=== PATIENT | female | born 1970 | race Caucasian/White ===

== ENCOUNTER 2020-04-13 18:36 | Emergency (ER) | payer BC ==
--- OUTSIDE RECORDS SUMMARY | 2020-04-13 18:38 | XMS REPORT | Clinical Summary ---
:1970 Author Organization [facility] Address [address] [place] [address] Care Team Providers Name Role Phone Dawood Cole MD Primary Care Provider Allergies Active Allergy Reactions Severity Noted Date Comments Ephedrine 10/18/2016 Medications Medication Sig Dispensed Refills Start Date End Date Status UNABLE TO FIND Med Name: Estrogen Patch. 0 Active Active Problems Not on file Encounters Date Type Specialty Care Team Description 03/02/2020 Documentation Ophthalmology Koby Zambrano MD 02/26/2020 Telephone Ophthalmology Koby Zambrano MD 02/18/2020 Telephone Ophthalmology Suzie Miranda 02/09/2020 Telephone Ophthalmology Marcia Egan 02/04/2020 Telephone Ophthalmology Humera Shrestha 02/03/2020 Telephone General Surgery Renata Lomeli LVN 02/03/2020 Orders Only General Surgery Renata Lomeli, SOLE SKIVER Weight l oss (Primary Dx); Multiple vitami n deficiency; S/P gastric byp ass; Intestinal dago bsorption, unspecified type 02/02/2020 Telephone Ophthalmology Koby Zambrano MD 01/28/2020 Telephone Ophthalmology Koby Zambrano MD 01/25/2020 Orders Only Ophthalmology Koby Zambrano MD 01/21/2020 Office Visit Ophthalmology Koby Zambrano MD Optic ne uritis (Primary Dx); Unspecified vis ual field defects 01/21/2020 Travel 11/18/2019 Telephone Ophthalmology Koby Zambrano MD after 04/13/2019 Surgical History Surgery Date Site/Laterality Comments BEAR-EN-Y PROCEDURE Medical History Medical History Date Comments Obesity GI (gastrointestinal bleed) Family History Medical History Relation Name Comments Hyperlipidemia Father Hypertension Father Cancer Maternal Grandmother Cancer Mother Hyperlipidemia Mother Hypertension Mother Cancer Paternal Grandfather Relation Name Status Comments Father Alive Maternal Grandmother Alive Mother Alive Paternal Grandfather Social History Tobacco Use Types Packs/Day Years Used Date Former Smoker Smokeless Tobacco: Never Used Alcohol Use Drinks/Week oz/Week Comments Never Alcohol Habits Answer Date Recorded How often do you have a drink containing alcohol? Never 01/21/2020 How many drinks containing alcohol do you have on a typical Not asked day when you are drinking? How often do you have six or more drinks on one occasion? No t asked Sex Assigned at Date Recorded Not on file Last Filed Vital Signs Vital Sign Reading Time Taken Comments Blood Pressure - - Pulse - - Temperature - - Respiratory Rate - - Oxygen Saturation - - Inhaled Oxygen Concentration - - Weight 90.7 kg (200 lb) 01/21/2020 12:50 PM CDT Height 165.1 cm (5' 5") 01/21/2020 12:50 PM CDT Body Mass Index 33.28 01/21/2020 12:50 PM CDT Plan of Treatment Date Type Specialty Care Team Description 05/04/2020 Office Visit Ophthalmology Koby Zambrano MD [address] [facility] [address] [place], [place] [address] [phone] Health Maintenance Due Date Last Done Comments CERVICAL CANCER SCREENING 1992 INFLUENZA VACCINE 01/16/2020 Procedures Procedure Name Priority Date/Time Associated Comments Diagnosis RPR TITER WITH REFLEX Routine 01/25/2020 4:27 Re sults for this TO CONFIRMATION PM CDT procedure ar e in the results section. NIACIN (VITAMIN B3) Routine 01/25/2020 4:27 Resu lts for this PM CDT procedure are i n the results section. VITAMIN B1 LEVEL, Routine 01/25/2020 4:27 Result s for this WHOLE BLOOD PM CDT procedure are i n the results section. VITAMIN K LEVEL, SERUM Routine 01/25/2020 4:27 R esults for this PM CDT procedure are i n the results section. VITAMIN B2 LEVEL, Routine 01/25/2020 4:27 Result s for this PLASMA PM CDT procedure are i n the results section. VITAMIN C LEVEL, Routine 01/25/2020 4:27 Results for this PLASMA PM CDT procedure are i n the results section. VITAMIN D 25 HYDROXY Routine 01/25/2020 4:27 Res ults for this LEVEL PM CDT procedure are i n the results section. VITAMIN B12 AND FOLATE Routine 01/25/2020 4:27 R esults for this PM CDT procedure are i n the results section. T3, FREE Routine 01/25/2020 4:27 Results for this PM CDT procedure are i n the results section. THYROID STIMULATING Routine 01/25/2020 4:27 Resu lts for this HORMONE PM CDT procedure are i n the results section. T4, FREE Routine 01/25/2020 4:27 Results for this PM CDT procedure are i n the results section. VITAMIN E LEVEL, Routine 01/25/2020 4:27 Results for this PLASMA OR SERUM PM CDT procedure ar e in the results section. HOMOCYSTINE, PLASMA Routine 01/25/2020 4:27 Resu lts for this PM CDT procedure are i n the results section. METHYLMALONIC ACID, Routine 01/25/2020 4:27 Resu lts for this SERUM PM CDT procedure are i n the results section. FERRITIN LEVEL Routine 01/25/2020 4:27 Results f or this PM CDT procedure are i n the results section. TOTAL IRON BINDING Routine 01/25/2020 4:27 Resul ts for this CAPACITY PM CDT procedure are i n the results section. after 04/13/2019 Results Niacin (vitamin B3) (01/25/2020 4:27 PM CDT) [facility] Signature Nicotinic acid <20 ng/mL [employer] Comment: [place] OTERO Due to the large variability in the metabolism of nicotinic acid, the dosing preparation used (immediate-release vs. extended release), and the mg doses used, the serum concentrations may range from less than 20 ng/mL to about 30,000 ng/mL. After oral administration of an immediate-release tablet, peak plasma concentrations occur in 4 to 5 hours. The plasma half-life of nicotinic acid is about one hour. In one study, fasting plasma concentrations were reported to be less than 20 ng/mL. In another study, it was reported that the administration of a single 1000 mg extended-release tablet resulted in mean nicotinic acid concentrations of less than 50 ng/mL. This test was developed and its analytical performance characteristics have been determined by [facility]. It has not been cleared or approved by [facility] FDA. This assay has been validated pursuant to the CLI A regulations and is used for clinical purposes. Nicotinamide <20 ng/mL [employer] Comment: BEVERLY OTERO Nicotinamide is a metabolite of nicotinic acid. Due to the large variability in the metabolism of nicotinic acid, plasma concentrations of this metabolite are variable. In one study, fasting plasma concentrations were reported to be approximately 40 ng/mL. In another study it was reported that the administration of a single 1000 mg of extended- release tablet of nicotinic acid resulted in a mean peak nicotinamide concentration of 400 ng/mL between 5 and 10 hours post dose, decreasing to about 100 ng/mL by 16 hours post dose. This test was developed and its analytical performance characteristics have been determined by [facility]. It has not been cleared or approved by [facility] FDA. This assay has been validated pursuant to the CLI A regulations and is used for clinical purposes. Specimen Narrative Performed At FASTING:NO [facility] FASTING: NO Resulting Agency Comment Performing Organization Information: Site ID: SLI Name: [facility] Irene gaye Address: [address] [place] [phone] Director: Jasper Ontiveros M.D., Ph. D Performing Organization Address [place] [facility] Phon e Number [employer] [address] [address] [employer] Vitamin B12 and Folate (01/25/2020 4:27 PM CDT) [facility] Vitamin B12 228 200 - 1,100 [employer] Comment: pg/mL [place] Please Note: Although the reference range for vitamin B12 is 200-1100 pg/mL, it has been reported that betwe en 5 and 10% of patients with values between 200 and 400 pg/mL may experience neuropsychiatric and hematologic abnormalities due to occult B12 deficiency; less than 1% of patients with values above 400 pg/mL will have symp toms. Folate 11.2 ng/mL [employer] Comment: [place] Reference Rang e Low: <3.4 Borderline: 3.4-5.4 Normal: >5.4 Specimen Narrative Performed At FASTING:NO [facility] FASTING: NO Resulting Agency Comment Performing Organization Information: Site ID: RGA Name: [facility] Melanie martínez Address: [address] [place] [phone] Director: Jagjit Mahoney Performing Organization Address [place] [facility] Phon e Number [employer] [address] [address] RPR titer with reflex to confirmation (01/25/2020 4:27 PM CDT) RPR (dx) w/refl titer NON-REACTIVE NON-REACTIVE [facility] and confirmatory [place] testing Specimen Narrative Performed At FASTING:NO [facility] FASTING: NO Resulting Agency Comment Performing Organization Information: Site ID: RGA Name: [facility] Address: [address] [place] [phone] Director: Jagjit Mahoney Performing Organization Address City/State/ZIP [facility] Phon e Number [facility] [place] [address] Total iron binding capacity (01/25/2020 4:27 PM CDT) Pathologist Sig nature Iron level 36 (L) 40 - 190 mcg/dL [facility] Iron binding capacity 425 250 - 450 [facility] mcg/dL (calc) [place] Iron saturation 8 (L) 16 - 45 % [facility] (calc) [place] Specimen Narrative Performed At FASTING:NO [facility] FASTING: NO Resulting Agency Comment Performing Organization Information: Site ID: RGA Name: [facility] Address: [address] [place] [phone] Director: Jagjit Mahoney Performing Organization Address [place] [facility] Phon e Number [facility] [place] [address] Homocystine, plasma (01/25/2020 4:27 PM CDT) Homocysteine 11.9 (H) <10.4 umol/L [facility] Comment: DIAGNOSTICS/[facility] Homocysteine is increased by functional deficiency of folate or vitamin B12. Testing for methylmalonic acid differentiates between these deficiencies. Other cause s of increased homocysteine include renal failure, folate antagonists such as methotrexate and phenytoin, and ex posure to nitrous oxide. Lorri Vasquez, et al. [employer] Med. 1999;131(5):331-9. Specimen Narrative Performed At FASTING:NO [facility] FASTING: NO Resulting Agency Comment Performing Organization Information: Site ID: EZ Name: [facility], Address: [address] [place] [address] Director: Yudith Ocampo MD,PhD,MB A Performing Organization Address [place] [facility] Phon e Number [facility] [address] [place], [place] [phone] [facility] [address] Methylmalonic acid, serum (01/25/2020 4:27 PM CDT) Pathologist [facility] Methylmalonic acid 318 87 - 318 [facility] Comment: nmol/L DIAGNOSTICS/[facility] This test was developed and its analytical performance characteristics have been determined by [facility]. It has not been cleared or approved by FDA. This assay has been valida david pursuant to the CLIA regulations and is used for clini patricio purposes. Specimen Narrative Performed At FASTING:NO [facility] FASTING: NO Resulting Agency Comment Performing Organization Information: Site ID: EZ Name: [facility], Address: [address] [place] [phone] Director: Yudith Ocampo MD,PhD,MB A Performing Organization Address [place] [facility] Phon e Number [facility] [address] [place], [place] [phone] [facility] [address] Vitamin B1 level, whole blood (01/25/2020 4:27 PM CDT) [facility] Vitamin B1, 145 78 - 185 [facility] whole blood Comment: nmol/L [facility] Vitamin supplementation within 24 hours prior to blood draw may affect the accuracy of results. This test was developed and its analytical performance characteristics have been determined by [facility]. It has not been cleared or approved by [facility] FDA. This assay has been validated pursuant to the CLI A regulations and is used for clinical purposes. Specimen Narrative Performed At FASTING:NO [facility] FASTING: NO Resulting Agency Comment Performing Organization Information: Site ID: SLI Name: [facility] Irene huizar Address: [address] [place] [address] Director: Jasper Ontiveros M.D., Ph. D Performing Organization Address [place] [facility] Phon e Number [facility] [place] [address] [place] [address] [employer] Vitamin K level, serum (01/25/2020 4:27 PM CDT) Vitamin K 1,340 130 - 1,500 [facility] Comment: pg/mL [place] OTERO Due to potential interferences, Vitamin K1 levels cannot be determined in individuals taking Vitamin K2 supplements. This test was developed and its analytical performance characteristics have been determined by [facility]. It has not been cleared or approved by [facility]. This assay has been validated pursuant to the CLI A regulations and is used for clinical purposes. Specimen Narrative Performed At FASTING:NO [facility] FASTING: NO Resulting Agency Comment Performing Organization Information: Site ID: [facility] Name: [facility] Address: [address] [place], [place] [address] Director: Jasper Ontiveros M.D., Ph. D Performing Organization Address [facility] e Number [employer] [place] [id number] [place], [place] [phone] [employer] Vitamin B2 level, plasma (01/25/2020 4:27 PM CDT) Vitamin B2 11.4 6.2 - 39.0 [facility] Comment: nmol/L [place] OTERO Vitamin supplementation within 24 hours prior to blood draw may affect the accuracy of results. This test was developed and its analytical performance characteristics have been determined by [facility]. It has not been cleared or approved by [facility]. This assay has been validated pursuant to the CLI A regulations and is used for clinical purposes. Specimen Narrative Performed At FASTING:NO [facility] FASTING: NO Resulting Agency Comment Performing Organization Information: Site ID: [facility] Name: [employer] [facility] Address: [address] [place] [address] Director: Jasper Ontiveros M.D., Ph. D Performing Organization Address [place] [facility] Phon e Number IND [employer] [phone] [place], [place] [phone] [employer] Vitamin C level, plasma (01/25/2020 4:27 PM CDT) Vitamin C, 0.3 0.3 - 2.7 [facility] plasma Comment: mg/dL [place] OTERO This test was developed and its analytical performance characteristics have been determined by [facility]. It has not been cleared or approved by [facility] FDA. This assay has been validated pursuant to the CLI A regulations and is used for clinical purposes. Specimen Narrative Performed At FASTING:NO [facility] FASTING: NO Resulting Agency Comment Performing Organization Information: Site ID: SLI Name: NPTVChasity huizar Address: [address] [place] [phone] Director: Jasper Ontiveros M.D., Ph. D Performing Organization Address City/[facility] Phon e Number [employer] [address] [phone] ATTICA Vitamin D 25 hydroxy level (01/25/2020 4:27 PM CDT) Pathologist [facility] Vitamin D, 16 (L) 30 - 100 [employer] 25-hydroxy Comment: ng/mL [place] Vitamin D Status 25-OH Vitamin D: Deficiency: <20 ng/mL Insufficiency: 20 - 29 ng/mL Optimal: > or = 30 ng/mL For 25-OH Vitamin D testing on patients on D2-supplementation and patients for whom quantitation of D2 and D3 fractions is required, the [facility](T M) 25-OH VIT D, (D2,D3), LC/MS/MS is recommended: order code 29757 (patients >2yrs). See Note 1 Note 1 For additional information, please refer to http://education.[employer]/faq/BQB364 (This link is being provided for informational/ educational purposes only.) Specimen Narrative Performed At FASTING:NO [facility] FASTING: NO Resulting Agency Comment Performing Organization Information: Site ID: RGA Name: [facility] Melanie martínez Address: [address] [place] [address] Director: Jagjit Mahoney Performing Organization Address City/[facility]/ZIP [facility] Phon e Number [employer] [address] [address] T3, free (01/25/2020 4:27 PM CDT) Pathologist [facility] [place]aclyn T3, free 2.4 2.3 - 4.2 pg/mL [employer] [place] Specimen Narrative Performed At FASTING:NO [facility] FASTING: NO Resulting Agency Comment Performing Organization Information: Site ID: RGA Name: [facility] Address: [address] [place] [address] Director: Jagjit Mahoney Performing Organization Address [place] [facility] Phon e Number [employer] [place] [address] [place] [address] Vitamin E level, plasma or serum (01/25/2020 4:27 PM CDT) Alpha-tocopherol 12.9 mg/L [facility] mg/L Comment: BEVER[place] OTERO Reference Range 5.7-19.9 mg/L Levels of alpha-tocopherol <5 mg/L are consistent with Vitamin E deficiency in adults. Vitamin supplementation within 24 hours prior to blood draw may affect the accuracy of results. This test was developed and its analytical performance characteristics have been determined by [facility]. It has not been cleared or approved by [facility] FDA. This assay has been validated pursuant to the CLI A regulations and is used for clinical purposes. Gamma-tocopherol 1.4 <4.4 mg/L [facility] mg/L Comment: [place] OTERO This test was developed and its analytical performance characteristics have been determined by [facility]. It has not been cleared or approved by [facility] FDA. This assay has been validated pursuant to the CLI A regulations and is used for clinical purposes. Specimen Narrative Performed At FASTING:NO [facility] FASTING: NO Resulting Agency Comment Performing Organization Information: Site ID: SLI Name: NPTVBeverly huizar Address: [address] [place] [address] Director: Jasper Ontiveros M.D., Ph. D Performing Organization Address [place] [facility] Phon e Number [employer] [place] [address] [address] SHANNA Thyroid stimulating hormone (01/25/2020 4:27 PM CDT) Pathologist Sig nature TSH 1.95 mIU/L [facility] Comment: [place] Reference Range > or = 20 Years 0.40-4.50 Ranges First trimester 0.26-2.66 Second trimester 0.55-2.73 Third trimester 0.43-2.91 Specimen Narrative Performed At FASTING:NO [facility] FASTING: NO Resulting Agency Comment Performing Organization Information: Site ID: RGA Name: [facility] Address: [address] [place] [phone] Director: Jagjit Mahoney Performing Organization Address [place] [facility] Phon e Number [facility] [place] [address] T4, free (01/25/2020 4:27 PM CDT) Pathologist Sig nature T4, free 0.9 0.8 - 1.8 ng/dL [facility] [place] Specimen Narrative Performed At FASTING:NO [facility] FASTING: NO Resulting Agency Comment Performing Organization Information: Site ID: RGA Name: [facility] Address: [address] [place] [phone] Director: Jagjit Mahoney Performing Organization Address [facility] Phon e Number [facility] [place] [address] Ferritin level (01/25/2020 4:27 PM CDT) Pathologist Sig nature Ferritin level 4 (L) 16 - 232 ng/mL [facility] Specimen Narrative Performed At FASTING:NO [facility] FASTING: NO Resulting Agency Comment Performing Organization Information: Site ID: RGA Name: [facility] [facility] Address: [address] [place] [phone] Director: Jagjit Mahoney Performing Organization Address [place] [facility] Phon e Number [facility] [place] [address] after 04/13/2019 Advance Directives For more information, please contact: [phone] Type Date 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
--- OUTSIDE RECORDS SUMMARY | 2020-04-13 18:38 | XMS REPORT | Continuity of Care Document ---
:1970 Author Organization [facility] t Address [address] [place] [address] Care Team Providers Name Role Phone Brayan Cole MD Primary Care Physician Yaakov Rivera MD Attending Clinician Ruben Attending Clinician Unavailable Julisa Attending Clinician Unavailable Shrestha Attending Clinician Unavailable Yani GLUE MIXER Attending Clinician [facility] Attending Clinician Unavailable Payers Payer Name Policy Type Policy Effective Date Expiration Date [facility] Number BCBSBCBS CHOICE [id number] 2015 [place] PPO/FEDERAL 00:00:00 Hinduism EMPL [id number] 2015-Presen tPPO Problems This patient has no known problems. Allergies, Adverse Reactions, Alerts Allergy Allergy Status Severity Reaction(s) Onset Inactive Treating Comm ents Source Name Type Date Date Clinician Ephedrin Propensi Active [place] ty to 10-18 [facility] adverse 00:00: st reaction 00 s to drug Family History Family Member Diagnosis Comments Start Date Stop Date Source Natural father Hyperlipidemia [place] [facility] Natural father Hypertension [place] [facility] Maternal grandmother Cancer [place] [facility] Natural mother Cancer [facility] thodist Natural mother Hyperlipidemia [place] Natural mother Hypertension [place] [facility] Paternal grandfather Cancer [place] Social History Social Habit Start Date Stop Date Quantity Comments Source History [facility] Meth odist Alcohol Std Drinks History [facility] Meth odist Alcohol Binge Sex Assigned At [facility] ethodist Tobacco use and 2020-01-21 2020-01-21 Never used [facility] ethodist exposure 00:00:00 00:00:00 Alcohol intake 2020-01-21 2020-01-21 Lifetime [facility] thodist 00:00:00 00:00:00 non-drinker (finding) History SDOH 2020-01-21 2020-01-21 1 [place] [facility] Alcohol Frequency 00:00:00 00:00:00 Smoking Status Start Date Stop Date Source Former smoker 2020-01-21 00:00:00 2020-01-21 00:00:00 Zheng Cole Medications Ordered Filled Start Stop Current Ordering Indication Dosage Frequency Signature Comments Components Source Medication Medication Date Date Medication? Clinician (SIG) Name Name UNABLE TO Yes Med Name: Fermin LILLY 01-20 Estrogen Methodi 12:51: Patch. st 11 Vital Signs Vital Name Observation Time Observation Value Comments Source Body height 2020-01-21 12:50:00 165.1 cm Zheng Cole Body weight 2020-01-21 12:50:00 90.719 kg Zheng Cole BMI 2020-01-21 12:50:00 33.28 kg/m2 Zheng Cole Procedures Procedure Date / Time Performed Performing Clinician Sourc e TOTAL IRON BINDING 2020-01-25 16:27:00 Sue Rivera ethodist CAPACITY FERRITIN LEVEL 2020-01-25 16:27:00 Sue Rivera odjesus METHYLMALONIC ACID, SERUM 2020-01-25 16:27:00 Sue Rivera [place] [facility] HOMOCYSTINE, PLASMA 2020-01-25 16:27:00 Sue Rivera VITAMIN E LEVEL, PLASMA 2020-01-25 16:27:00 Sue Rivera [facility] OR SERUM T4, FREE 2020-01-25 16:27:00 Sue Rivera Meth odist THYROID STIMULATING 2020-01-25 16:27:00 Sue Rivera HORMONE T3, FREE 2020-01-25 16:27:00 Sue Rivera Meth odjesus VITAMIN B12 AND FOLATE 2020-01-25 16:27:00 Sue Rivera on Hinduism VITAMIN D 25 HYDROXY 2020-01-25 16:27:00 Sue Rivera LEVEL VITAMIN C LEVEL, PLASMA 2020-01-25 16:27:00 Sue Rivera VITAMIN B2 LEVEL, PLASMA 2020-01-25 16:27:00 Sue Rivera VITAMIN K LEVEL, SERUM 2020-01-25 16:27:00 Sue Rivera on [facility]ism VITAMIN B1 LEVEL, WHOLE 2020-01-25 16:27:00 Sue Rivera BLOOD NIACIN (VITAMIN B3) 2020-01-25 16:27:00 Sue Rivera RPR TITER WITH REFLEX TO 2020-01-25 16:27:00 Sue Rivera CONFIRMATION Plan of Care Planned Activity Planned Date Details Comments Source Future Scheduled 2020-01-16 INFLUENZA VACCINE [place] [facility] Test 00:00:00 [code = INFLUENZA VACCINE] Future Scheduled 1992 Screening for [facility] thodist Test 00:00:00 malignant neoplasm of cervix (procedure) [code = 492570579] Encounters Start End Encounter Admission Attending Care Care Encounter Source Date/Time Date/Time Type Type Clinicians Facility Department ID 2020-01-21 2020-01-21 Outpatient SUE RIVERA [facility] [id number] [place] 00:00:00 00:00:[address] 2019-09-07 2019-09-07 Office Pob1, Acute [facility] [id number] 14:58:21 16:00:22 Visit [facility] [id number] [place] [id number] Professio [id number] nal 044 Office Building One Results Test Description Test Time Test Comments Results Result Comments Source Ferritin level 2020-01-30 16:10:00 Test Item Value Reference Range Interpretation Comme nts Ferritin level (test code = 2276-4) 4 ng/mL 16-232 L RYAN (test code = RYAN) FASTING:NOFASTING: NO RAC (test code = RAC) Performing Organization Information: Site ID: RGA Name: [facility] Address: [address] [place] [address] Director: Jagjit Mahoney Lab Interpretation (test code = Abnormal 79251-9) Zheng Gallego, [id number] 16:10:00 Test Item Value Reference Range Interpretation Comments T4, free (test code 0.9 ng/dL 0.8-1.8 = 3024-7) RYAN (test code = FASTING:NOFASTING: NO RYAN) RAC (test code = Performing Organization RAC) Information: Site ID: MICHAEL Name: [facility] Address: [address] [place] [phone] Director: Jagjit Nick ZhangHoolehua [place] DorcasistThyroid stimulating [id number] 16:10:00 Test Item Value Reference Range Interpretation Comments TSH (test code 1.95 mIU/L = 3016-3) Reference Range > or = 20 Years 0.40-4.50 Range s First trimester 0.26-2.66 Second trimeste r 0.55-2.73 Third trimester 0.43-2.91 RYAN (test code FASTING:NOFASTING: NO = RYAN) RAC (test code Performing = RAC) Organization Information: Site ID: [facility] Name: [facility] Lab Address: [address] [place] [phone] Director: Jagjit Zhangridge [place] HinduismVitamin E level, plasma or [id number] 16:10:00 Test Item Value Reference Range Interpretation Comments Alpha-tocoph 12.9 mg/L Reference Range cash mg/L 5.7-19.9 mg /L (test code = Levels o f 1823-4) alpha-tocophero l <5 mg/L are consistent with Vitamin E defic iency in adults.Vitamin supplementation within 24 hours prior to blood draw may affect the accuracy of results. T his test was develo ped and its analytical performance characteristics have been determined by [facility]. It has not been cl eared or approved by theFDA. This assay has been validated pursu ant to the CLIA regula tions and is used for clinical purpos es. Gamma-tocoph 1.4 <4.4 mg/L This test was cash mg/L developed and i ts (test code = analytical perf ormance 43584-9) characteristics have been determined by [facility]. It has not been cl eared or approved by theFDA. This assay has been validated pursu ant to the CLIA regula tions and is used for clinical purpos es. RYAN (test FASTING:NOFASTING: code = RYAN) NO RAC (test Performing code = RAC) Organization Information: Site ID: SLI Name: [facility] Address: [address] [place] [address] Director: Jasper Ontiveros M.D., Ph.D [place] MethodistT3, [id number] 16:10:00 Test Item Value Reference Range Interpretation Comments T3, free (test code 2.4 pg/mL 2.3-4.2 = 3051-0) RYAN (test code = FASTING:NOFASTING: NO RYAN) RAC (test code = Performing Organization RAC) Information: Site ID: RGA Name: [facility] Address: [address] [place] [phone] Director: Jagjit Mahoney [place] MethodistVitamin D 25 hydroxy [id number] 16:10:00 Test Item Value Reference Range Interpretation Comments Vitamin D, 16 ng/mL 30-100 L Vitamin D Statu s 25-hydroxy (test 25-O H code = 1988-08) Vitamin D: Deficiency: <2 0 ng/mLInsufficie nc y: 20 - 29 ng/mLOptimal: > o r = 30 ng/mL For 25-OH Vitamin D testing on patients on D2-supplementat io n and patients for whom quantitation of D2 and D3 fractions is required, the QuestAssureD(TM )2 5-OH VIT D, (D2,D3), LC/MS/ MS is recommended: order code 9288 8 (patients >2yrs).See Note 1 Note 1 For additional information, please refer to http://educatio n. [employer]. Flare3d/faq/THE543 (This link is being provided for informational/e du cational purpos es only.) RYAN (test code = FASTING:NOFASTING: RYAN) NO RAC (test code = Performing RAC) Organization Information: Site ID: RGA Name: [facility] Address: [address] [place] [phone] Director: Jagjit Mahoney Lab Interpretation Abnormal (test code = 02852-3) [place] MethodistVitamin C level, [id number] 16:10:00 Test Item Value Reference Range Interpretation Comments Vitamin C, 0.3 mg/dL 0.3-2.7 This test was plasma (test developed and i ts code = 1903-4) analytical performance characteristics have been determined by [facility] . It has not been cl eared or approved by theFDA. This as say has been valida david pursuant to the CLIA regulations and is used for clinic al purposes. RYAN (test code FASTING:NOFASTING: = RYAN) NO RAC (test code Performing = RAC) Organization Information: Site ID: [facility] Name: [facility] Address: [address] [place] [address] Director: Jasper Ontiveros M.D., Ph.D [place] MethodistVitamin B2 level, [id number] 16:10:00 Test Item Value Reference Range Interpretation Comments Vitamin B2 11.4 nmol/L 6.2-39 Vitamin (test code = supplementation 96477-7) within 24 hours prior toblood draw ma y affect the accu racy of results. Thi s test was developed a nd its analytical performance characteristics have been determined by [facility] . It has not been cl eared or approved by theFDA. This as say has been valida david pursuant to the CLIA regulations and is used for clinic al purposes. RYAN (test code FASTING:NOFASTING: = RYAN) NO RAC (test code Performing = RAC) Organization Information: Site ID: [facility] Name: [facility] Address: [address] [place], [place] [address] Director: Jasper Ontiveros M.D., Ph.D [place] MethodistVitamin K level, [id number] 16:10:00 Test Item Value Reference Range Interpretation Comments Vitamin K 1340 pg/mL 130-1500 Due to potentia l (test code = interferences, 9622-2) Vitamin K1 levelscannot be determined in individuals niyah ing Vitamin I4mfzqysemuoh. This test was develo ped and its analyti patricio performance characteristics have been determined by [facility] . It has not been cl eared or approved by theFDA. This as say has been valida david pursuant to the CLIA regulations and is used for clinic al purposes. RYAN (test code FASTING:NOFASTING: = RYAN) NO RAC (test code Performing = RAC) Organization Information: Site ID: [facility] Name: [facility] Address: [address] [place] [address] Director: Jasper Ontiveros M.D., Ph.D [place] HinduismVitamin B1 level, whole [id number] 16:10:00 Test Item Value Reference Range Interpretation Comments Vitamin B1, 145 nmol/L 78-185 Vitamin whole blood supplementation (test code = within 24 hours prior 39481-6) toblood draw ma y affect the accu racy of results. T his test was develo ped and its analyti patricio performance characteristics have been determined by [facility]. It has not been cl eared or approved by theA. This as say has been valida david pursuant to the CLIA regulations and is used for clinic al purposes. RYAN (test code FASTING:NOFASTING: = RYAN) NO RAC (test code Performing = RAC) Organization Information: Site ID: [facility] Name: [facility] Address: [address] [place] [phone] Director: Jasper Ontiveros M.D., Ph.D [place] DorcasistMethylmalonic acid, [id number] 16:10:00 Test Item Value Reference Interpretation Comments Range Methylmalonic 318 nmol/L 87-318 This test was developed and acid (test code its analytic al = 35023-7) performancechar acteristics have been deter mined by [facility]. It has not beencleared or approved by FDA. This assay has been validatedpursua nt to the CLIA regulation s and is used for clinicalpur poses. RYAN (test code = FASTING:NOFASTI RYAN) NG: NO RAC (test code = Performing RAC) Organization Information: Site ID: Name: [employer], Address: [address] [place] [address] Director: Yudith Ocampo MD,PhD,OBIE [place] MethodistHomocystine, [id number] 16:10:00 Test Item Value Reference Interpretation Comments Range Homocysteine (test 11.9 umol/L <10.4 H Homocyst eine is code = 83372-9) increased by functional defi ciency of folateor vit browne B12. Testing fo r methylmalonic aciddifferentia edwin between these deficiencies. O ther causes ofincrea sed homocysteine in clude renal failure, folateantagonis ts such as methotrexate and phenytoin, and exposureto nitr ous oxide. Lorri Vasquez , et al. [employer] Operator Med.1999;131(5) :331-9. RYAN (test code = FASTING:NOFASTIN RYAN) G: NO RAC (test code = Performing RAC) Organization Information: Site ID: EZ Name: [employer], Address: [address] [place] [phone] Director: Yudith Ocampo MD,PhD,OBIE Lab Interpretation Abnormal (test code = 87490-6) [place] MethodistTotal iron binding [id number] 16:10:00 Test Item Value Reference Range Interpretation Comments Iron level (test code = 36 40- 190 mcg/dL L 2498-4) Iron binding capacity 425 250- 450 mcg/dL (test code = 2500-7) (calc) Iron saturation (test 8 16- 45 % (calc) L code = 2502-3) RYAN (test code = RYAN) FASTING:NOFASTING: NO RAC (test code = RAC) Performing Organization Information: Site ID: RGA Name: [facility] Address: [address] [place] [phone] Director: Jagjit Mahoney Lab Interpretation Abnormal (test code = 64782-7) [place] MethodistRPR titer with reflex to [id number] 16:10:00 Test Item Value Reference Range Interpretation Comments RPR (dx) w/refl titer NON-REACTIVE NON-REACTIVE and confirmatory testing (test code = 57229-5) RYAN (test code = RYAN) FASTING:NOFASTING: NO RAC (test code = RAC) Performing Organization Information: Site ID: RGA Name: [facility] Address: [address] [place] [phone] Director: Jagjit Mahoney [place] MethodistVitamin B12 and [id number] 16:10:00 Test Item Value Reference Interpretation Comments Range Vitamin B12 228 pg/mL 200-1100 Please Note: A lthough the (test code = reference range for 9) nbmgkltN39 is 2 00-1100 pg/mL, it has b een reported that between5 a nd 10% of patients with v alues between 200 and 400pg/m L may experience neur opsychiatric and hematologic abnormalities due to occult B 12 deficiency; les s than 1%of patients with v alues above 400 pg/mL will have symptoms. Folate (test 11.2 ng/mL code = Reference Range 2284-8) Lo w: <3.4 Borderline: 3.4-5.4 Normal: >5.4 RYAN (test FASTING:NOFASTING code = RYAN) : NO RAC (test Performing code = RAC) Organization Information: Site ID: RGRaisa Name: [facility] Address: [address] [place] [phone] Director: Jagjit Griffith (vitamin B3)2020-01-30 16:10:00 Test Item Value Reference Interpretation Comments Range Nicotinic acid <20 ng/mL Due to the la rge (test code = variability in the 4060) metabolism of nicotinic acid, the dosing preparat ion used (immediate-rele ase vs. extended releas e), and the mgdoses use d, the serum concentra tions may range froml ess than 20 ng/mL t o about 30,000 ng/mL. A fter oraladministrat ion of an immediate-re lease tablet, peakpla sma concentrations occur in 4 to 5 hours . The plasma half-lif e of nicotinic acid is about one hour. In one study, fasting plasma concentrations were reported to be less than 20 ng/mL. In anotherstudy, i t was reported that t he administration of asingle 1000 mg extended-releas e tablet resulted inmean nicotinic acid concentrations of less than 50 ng/mL. This test was jono alexander and its analytical performance characteristics have been determined by [facility]. It has not been cl eared or approved by theFDA. This assay has been validated pursu ant to the CLIA regula tions and is used for clinical purpos es. Nicotinamide <20 ng/mL Nicotinamide is a (test code = metabolite of 4059) nicotinic acid. Dueto the large varia bility in the metaboli sm of nicotinic acid, plasma concentrations of this metabolite are variable. In on e study, fasting plasmaconcentra tions were reported t o be approximately 4 0 ng/mL. In anoth er study it was re ported that theadminis tration of a single 100 0 mg of extended-releas e tablet of nicot inic acid resulted i n a meanpeak nicoti namide concentration o f 400 ng/mL between5 and 10 hours post dose , decreasing to a bout 100 ng/mL by 16 hours post dose. This test was developed a nd its analytical perf ormance characteristics have been determined by [facility]. It has not been cl eared or approved by theA. This assay has been validated pursu ant to the CLIA regula tions and is used for clinical purpos es. RYAN (test code = FASTING:NOFASTING RYAN) : NO RAC (test code = Performing RAC) Organization Information: Site ID: SLI Name: [facility] Address: [address] [place] [address] Director: Jasper Ontiveros M.D., Ph.D Zheng Cole
--- NOTE | 2020-04-13 20:03 | RAD REPORT ---
EXAM DESCRIPTION: [place] Single View04/13/2020 7:53 pm CLINICAL HISTORY: Chest pain COMPARISON: none FINDINGS: The lungs appear clear of acute infiltrate. The heart is normal size IMPRESSION: No acute abnormalities displayed
[2020-04-13 20:06] LABS: Absolute Lymphocytes (CBC) 2.6 K/uL (0.7-4.9); Basophils % 1.2 % (0-1.3); Hematocrit 43.3 % (36.0-45.0); Lymphocytes % 33.5 % (15.3-44.8); MPV 8.1 fL (7.6-11.3); RBC Red Blood Cell Count 5.32 M/uL (3.86-4.86)
[2020-04-13 20:14] LABS: Protime INR 0.96
[2020-04-13 20:27] LABS: ALT/SGPT 39 U/L (12-78); AST/SGOT 21 U/L (15-37); Albumin 4.5 g/dL (3.4-5.0); Alkaline Phosphatase 104 U/L (45-117); BUN Blood Urea Nitrogen 13 mg/dL (7-18); Bicarbonate 27 mmol/L (21-32); Bilirubin Direct 0.1 mg/dL (0-0.2); Bilirubin Total 0.5 mg/dL (0.2-1.0); Glucose Level 92 mg/dL (74-106); Lipase 176 U/L (73-393); Magnesium 2.3 mg/dL (1.8-2.4); NT PRO-BNP 20 pg/mL (<125); Potassium 4.3 mmol/L (3.5-5.1); Protein, Total 8.9 g/dL (6.4-8.2); Sodium Level 137 mmol/L (136-145); Troponin (Emerg Dept Use Only) < 0.02 ng/mL (0.0-0.045)
[2020-04-13] MEDS ORDERED: ONDANSETRON 4 MG/2 ML VIAL ONE (20:35)
[2020-04-13] MEDS ORDERED: FENTANYL CITR 100 MCG/2 ML ONE (20:39)
--- NOTE | 2020-04-13 21:12 | RAD REPORT ---
EXAM DESCRIPTION: CT - Abdomen Pelvis W Contrast - 04/13/2020 8:57 pm CLINICAL HISTORY: Abdominal pain COMPARISON: 2014 TECHNIQUE: Computed axial tomography of the abdomen pelvis was obtained. 100 cc Isovue-300 was admin istered intravenously. Oral contrast was not requested which limits evaluation of bowel. All CT scans are performed using dose optimization technique as appropriate and may include automated exposure control or mA/KV adjustment according to patient size. FINDINGS: The liver, spleen, pancreas, adrenal and kidneys appear unremarkable. 2 centimeter left re nal cyst Cholecystectomy. Gastro jejunostomy with partial gastric resection. Moderate dilatation of proximal and mid jejunum. The distal jejunum and ileum are decompressed. No fr ee air. A pessary is present within the pelvis. Left paracentral calcified disc herniation L5-S1 IMPRESSION: Jejunal obstruction
--- NOTE | 2020-04-13 22:13 | ER ---
Nurse's Notes [facility] Name: Carli Escalona Age: 49 yrs Sex: Female : 1970 Arrival Date: 04/13/2020 Time: 18:40 Bed 13 Private MD: Dawood Cole Diagnosis: Small Bowel Obstruction Presentation: 04/13 18:55 Chief complaint: Patient states: Right upper back pain started int. Saturday night. ll1 Started wrapping around right trunk into chest since Saturday. Hurts to take a deep breathe. Denies N/V/D. RUQ abdominal pain now. No fever. On Bactrim for sinus infection for 5 days. Coronavirus screen: Client denies travel out of the [place] in the last 14 days. Coronavirus screen: At this time, the client does not indicate any symptoms associated with coronavirus-19. Ebola Screen: Patient denies travel to an Ebola-affected area in the 21 days before illness onset. Initial Sepsis Screen: Does the patient meet any 2 criteria? No. Patient's initial sepsis screen is negative. Does the patient have a suspected source of infection? Yes: Acute abdominal pain. Risk Assessment: Do you want to hurt yourself or someone else? Patient reports no desire to harm self or others. Onset of symptoms was April 09, 2020. 18:55 Method Of Arrival: Ambulatory ll1 18:55 Acuity: AUDREY 3 ll1 Historical: - Allergies: 18:59 Tramadol HCl; ll1 18:59 Epinephrine; ll1 18:59 Diphenhydramine; ll1 - PSHx: 18:59 ; Hysterectomy; breast reduction; partial gastrectomy with bypass; ll1 - Immunization history:: Flu vaccine is not up to date. - Social history:: Smoking status: Patient denies any tobacco usage or history of. Screenin:15 Abuse screen: Denies threats or abuse. Nutritional screening: No deficits noted. jb4 Tuberculosis screening: No symptoms or risk factors identified. Fall Risk None identified. Assessment: 19:15 General: Appears in no apparent distress. uncomfortable, Behavior is calm, cooperative, jb4 appropriate for age. Pain: Complains of pain in right side Pain does not radiate. Pain currently is 7 out of 10 on a pain scale. Quality of pain is described as burning. Neuro: Level of Consciousness is awake, alert, obeys commands, Oriented to person, place, time, situation. Cardiovascular: Patient's skin is warm and dry. Respiratory: Airway is patent Respiratory effort is even, unlabored, Respiratory pattern is regular, symmetrical. GI: Abdomen is non-distended, obese, Reports upper abdominal pain, nausea, vomiting. : No signs and/or symptoms were reported regarding the genitourinary system. EENT: No signs and/or symptoms were reported regarding the EENT system. Derm: Skin is intact, Skin is pink, warm \T\ dry. Musculoskeletal: Circulation, motion, and sensation intact. Range of motion: intact in all extremities. 20:15 Reassessment: Patient appears in no apparent distress at this time. Patient and/or jb4 family updated on plan of care and expected duration. Pain level reassessed. Patient is alert, oriented x 3, equal unlabored respirations, skin warm/dry/pink. 20:56 Reassessment: Patient appears in no apparent distress at this time. Patient and/or jb4 family updated on plan of care and expected duration. Pain level reassessed. Patient is alert, oriented x 3, equal unlabored respirations, skin warm/dry/pink. Patient states feeling better. Patient states symptoms have improved. 21:44 Reassessment: Patient appears in no apparent distress at this time. Patient and/or jb4 family updated on plan of care and expected duration. Pain level reassessed. Patient is alert, oriented x 3, equal unlabored respirations, skin warm/dry/pink. PT refusing NG tube placement until she speaks with her provider, provider notified. Patient states feeling better. 22:18 Reassessment: Refused NG tube. jb4 22:51 Reassessment: Patient appears in no apparent distress at this time. Patient and/or jb4 family updated on plan of care and expected duration. Pain level reassessed. Patient is alert, oriented x 3, equal unlabored respirations, skin warm/dry/pink. Vital Signs: 18:55 BP 151 / 110; Pulse 83; Resp 18; Temp 98.2; Pulse Ox 98% ; Height 5 ft. 5 in. (165.10 ll1 cm); Pain 7/10; 19:08 Weight 115.21 kg (M); ll1 20:30 BP 116 / 69; Pulse 82; Resp 16; Pulse Ox 96% on R/A; jb4 21:15 BP 99 / 67; Pulse 74; Resp 16; Pulse Ox 96% on R/A; jb4 22:00 BP 120 / 84; Pulse 73; Resp 16; Pulse Ox 98% on R/A; jb4 22:45 BP 117 / 64; Pulse 91; Resp 15; Pulse Ox 100% on R/A; jb4 19:08 Body Mass Index 42.27 (115.21 kg, 165.10 cm) ll1 ED Course: 18:40 Patient arrived in ED. mr 18:40 Dawood Cole MD is Private Physician. mr 18:58 Triage completed. ll1 18:59 Arm band placed on Patient placed in an exam room, on a stretcher. ll1 19:00 Patient has correct armband on for positive identification. Bed in low position. Call jb4 light in reach. Side rails up X 1. 19:08 Shmuel Link, COREY is Primary Nurse. jb4 19:13 [facility]al [facility]. jr8 19:13 Salo Vang MD is Attending Physician. jr8 19:45 Initial lab(s) drawn, by ca, sent to lab. Inserted saline lock: 18 gauge in right 4 antecubital area, using aseptic technique. Blood collected. 19:53 XRAY Chest (1 view) In Process Unspecified. EDMS 20:58 CT Abd/Pelvis - IV Contrast Only In Process Unspecified. EDMS 21:32 Initiated transfer to [facility], spoke with Génesis. ar5 22:53 No provider procedures requiring assistance completed. Patient transferred, IV remains jb4 in place. Administered Medications: 20:28 Drug: Zofran (Ondansetron) 4 mg Route: IVP; Site: right antecubital; jb4 21:46 Follow up: Response: No adverse reaction; Nausea is decreased; Vomiting decreased jb4 20:30 Drug: fentaNYL (PF) 50 mcg Route: IVP; Site: right antecubital; jb4 21:00 Follow up: Response: No adverse reaction; Marked relief of symptoms; Pain is decreased jb4 Outcome: 22:13 ER care complete, transfer ordered by . jr8 22:53 Transferred by ground EMS EMS. jb4 22:53 Condition: stable 22:53 Discharge instructions given to patient, Instructed on the need for transfer, Demonstrated understanding of instructions. 22:54 Patient left the ED. jb4 Signatures: Dispatcher [employer] Ammy Vance Josh, PA PA jr8 Shmuel Link, RN RN jb4 Diane Miller5 Evan Mendieta RN RN ll1
--- NOTE | 2020-04-13 22:14 | EDPHYS ---
Physician Documentation [facility] Name: Carli Escalona Age: 49 yrs Sex: Female : 1970 Arrival Date: 04/13/2020 Time: 18:40 Bed 13 Private MD: Dawood Cole ED Physician Salo Vang HPI: 04/13 20:45 This 49 yrs old Female presents to ER via Ambulatory with complaints of Right jr8 side pain. 20:45 The patient complains of RUQ pain starting Saturday. States that Saturday night her R jr8 shoulder suddenly began aching, and then it radiated down to her RUQ. States that now her pain radiates to her epigastrium. Reports nausea, but no vomiting or diarrhea. Describes the pain as "sharp, and comes in waves". HX of cholecystectomy and upper GI bleed.. Historical: - Allergies: 18:59 Tramadol HCl; ll1 18:59 Epinephrine; ll1 18:59 Diphenhydramine; ll1 - PSHx: 18:59 ; Hysterectomy; breast reduction; partial gastrectomy with bypass; ll1 - Immunization history:: Flu vaccine is not up to date. - Social history:: Smoking status: Patient denies any tobacco usage or history of. ROS: 21:05 Eyes: Negative for injury, pain, redness, and discharge, ENT: Negative for injury, jr8 pain, and discharge, Neck: Negative for injury, pain, and swelling, Cardiovascular: Negative for chest pain, palpitations, and edema, Respiratory: Negative for shortness of breath, cough, wheezing, and pleuritic chest pain, Back: Negative for injury and pain, MS/Extremity: Negative for injury and deformity, Skin: Negative for injury, rash, and discoloration, Neuro: Negative for headache, weakness, numbness, tingling, and seizure. 21:05 Abdomen/GI: Positive for abdominal pain, nausea and vomiting, Negative for diarrhea, constipation, abdominal cramps. Exam: 21:05 Eyes: Pupils equal round and reactive to light, extra-ocular motions intact. Lids and jr8 lashes normal. Conjunctiva and sclera are non-icteric and not injected. Cornea within normal limits. Periorbital areas with no swelling, redness, or edema. ENT: Nares patent. No nasal discharge, no septal abnormalities noted. Tympanic membranes are normal and external auditory canals are clear. Oropharynx with no redness, swelling, or masses, exudates, or evidence of obstruction, uvula midline. Mucous membranes moist. Neck: Trachea midline, no thyromegaly or masses palpated, and no cervical lymphadenopathy. Supple, full range of motion without nuchal rigidity, or vertebral point tenderness. No Meningismus. Cardiovascular: Regular rate and rhythm with a normal S1 and S2. No gallops, murmurs, or rubs. Normal PMI, no JVD. No pulse deficits. Respiratory: Lungs have equal breath sounds bilaterally, clear to auscultation and percussion. No rales, rhonchi or wheezes noted. No increased work of breathing, no retractions or nasal flaring. Back: No spinal tenderness. No costovertebral tenderness. Full range of motion. Skin: Warm, dry with normal turgor. Normal color with no rashes, no lesions, and no evidence of cellulitis. MS/ Extremity: Pulses equal, no cyanosis. Neurovascular intact. Full, normal range of motion. Neuro: Awake and alert, GCS 15, oriented to person, place, time, and situation. Cranial nerves II-XII grossly intact. Motor strength 5/5 in all extremities. Sensory grossly intact. Cerebellar exam normal. Normal gait. 21:05 Abdomen/GI: Inspection: obese Bowel sounds: active, all quadrants, Palpation: soft, in all quadrants, mild abdominal tenderness, in the epigastric area and right upper quadrant, mass, is not appreciated, rebound tenderness, is not appreciated, voluntary guarding, is not appreciated, involuntary guarding, is not appreciated, no appreciated organomegaly, Indicators: McBurney's point is not tender, Mckeon's sign is negative, Rovsing's sign is negative, Liver: tenderness, is not appreciated. Vital Signs: 18:55 BP 151 / 110; Pulse 83; Resp 18; Temp 98.2; Pulse Ox 98% ; Height 5 ft. 5 in. (165.10 ll1 cm); Pain 7/10; 19:08 Weight 115.21 kg (M); ll1 20:30 BP 116 / 69; Pulse 82; Resp 16; Pulse Ox 96% on R/A; jb4 21:15 BP 99 / 67; Pulse 74; Resp 16; Pulse Ox 96% on R/A; jb4 22:00 BP 120 / 84; Pulse 73; Resp 16; Pulse Ox 98% on R/A; jb4 22:45 BP 117 / 64; Pulse 91; Resp 15; Pulse Ox 100% on R/A; jb4 19:08 Body Mass Index 42.27 (115.21 kg, 165.10 cm) ll1 MDM: 19:13 Patient medically screened. jr8 22:11 Data reviewed: vital signs, nurses notes, lab test result(s), radiologic studies, CT jr8 scan. Data interpreted: Pulse oximetry: on room air is 98 %. Interpretation: normal. Counseling: I had a detailed discussion with the patient and/or guardian regarding: the historical points, exam findings, and any diagnostic results supporting the discharge/admit diagnosis, lab results, radiology results, the need to transfer to another facility. ED course: Spoke with our surgeon who requested we transfer to her bariatric surgeon if possible. Talked to Dr. Olivas who is patients surgeon at [facility] who accepted patient . 22:17 ED course: Patient refuses to have NG tube. Will wait until she transfers to [facility] .04/13 19:23 Order name: Basic Metabolic Panel; Complete Time: 20:36 04/13 19:23 Order name: CBC with Diff; Complete Time: 20:22 04/13 19:23 Order name: LFT's; Complete Time: 20:36 04/13 19:23 Order name: Magnesium; Complete Time: 20:36 04/13 19:23 Order name: NT PRO-BNP; Complete Time: 20:36 04/13 19:23 Order name: PT-INR; Complete Time: 20:22 04/13 19:23 Order name: Troponin (emerg Dept Use Only); Complete Time: 20:36 04/13 19:23 Order name: XRAY Chest (1 view); Complete Time: 20:08 04/13 19:23 Order name: EKG; Complete Time: 19:23 04/13 19:23 Order name: Cardiac monitoring; Complete Time: 20:48 04/13 19:23 Order name: Lipase; Complete Time: 20:36 04/13 20:36 Order name: CT Abd/Pelvis - IV Contrast Only; Complete Time: 21:18 8 04/13 19:23 Order name: EKG - Nurse/Tech; Complete Time: 20:48 8 04/13 19:23 Order name: IV Saline Lock; Complete Time: 20:48 8 04/13 19:23 Order name: Labs collected and sent; Complete Time: 20:48 8 04/13 19:23 Order name: O2 Per Protocol; Complete Time: 20:48 8 04/13 19:23 Order name: O2 Sat Monitoring; Complete Time: 20:48 8 Administered Medications: 20:28 Drug: Zofran (Ondansetron) 4 mg Route: IVP; Site: right antecubital; jb4 21:46 Follow up: Response: No adverse reaction; Nausea is decreased; Vomiting decreased jb4 20:30 Drug: fentaNYL (PF) 50 mcg Route: IVP; Site: right antecubital; jb4 21:00 Follow up: Response: No adverse reaction; Marked relief of symptoms; Pain is decreased jb4 Disposition: 23:05 Co-signature as Attending Physician, Salo Vang MD. pk Disposition: 04/13/20 22:13 Transfer ordered to [facility]. Diagnosis is Small Bowel Obstruction . - Reason for transfer: Higher level of care. - Accepting physician is Dr. Olivas. - Condition is Stable. - Problem is new. - Symptoms have improved. Signatures: Dispatcher [employer] EDSalo Israel MD MD pk Shan Villareal PA PA jr8 Shmuel Link RN RN jb4 Evan Mendieta RN RN ll1 Corrections: (The following items were deleted from the chart) 22:17 21:31 NG Tube ordered. jr8 jb4 22:54 22:13 04/13/2020 22:13 Transfer ordered to [facility]. Diagnosis is Small Bowel jb4 Obstruction . Reason for transfer: Higher level of care. Accepting physician is Dr. Olivas. Condition is Stable. Problem is new. Symptoms have improved. jr8
[2020-04-13 23:04] VITALS: TEMP 98.2
[2020-04-13 23:11] VITALS: BP 117/64; O2SAT 100
== END 2020-04-13 22:54 | disposition short-term general hospital (02) ==
LOC: ER 18:36
DX: K56.609 Unspecified intestinal obstruction, unspecified as to partial versus complete obstruction (principal); Z98.84 Bariatric surgery status; Z88.5 Allergy status to narcotic agent; Z88.8 Allergy status to other drugs, medicaments and biological substances
CPT/HCPCS: 85025; 80048; 36415; 83735; 85610; 80076; 84484; 83690; 83880; 74177; 71045; Q9967; J3010; J2405; 93005

== ENCOUNTER 2022-09-02 18:46 | Emergency (ER) | payer OTHER ==
--- OUTSIDE RECORDS SUMMARY | 2022-09-02 18:50 | XMS REPORT | Continuity of Care Document ---
:1970 Author Organization [facility] t Address [address] [facility] [address] [place] [id number] Care Team Providers Name Role Phone SIN Lopes Jr., Stephen Primary Care Physician [phone] Leroy LE, Annalee Rosas Attending Clinician Dalia Hardin Attending Clinician Kalin Olivas MD Attending Clinician Briana Gomes MA Attending Clinician Unavailable Gokul South MD Attending Clinician Radiology Attending Clinician Unavailable RADIOLOGY Attending Clinician Unavailable Melva Cui NP Attending Clinician Dee Dee Ray MA Attending Clinician Unavailable FLIP MCKINNEY Attending Clinician Unavailable Doctor Unassigned, [place] Attending Clinician Unavailable Ling Cueva NP Attending Clinician GONZÁLEZ AUGUST Attending Clinician Unavailable Sue Rivera MD Attending Clinician DAVE ALEXANDRE Attending Clinician Unavailable MATT BEASLEY Attending Clinician Unavailable STACY WEEMS Attending Clinician Unavailable Patricai Shankar MA Attending Clinician Unavailable [facility] Attending Clinician Unavailable PRABHAKAR CHOUDHURY Attending Clinician Unavailable ADARSH BOWERS Attending Clinician Unavailable FREDY LOPES Admitting Clinician Unavailable ALAN BENSON Admitting Clinician Unavailable KALIN OLIVAS Admitting Clinician Unavailable ADARSH BOWERS Admitting Clinician Unavailable Payers Payer Name Policy Type Policy Number Effective Date Expiration Date S francois [employer] [place] - [id number] 2019 00:00:00 OUT OF STATE Problems Condition Condition Condition Status Onset Resolution Last Treating Co mments Source Name Details Category Date Date Treatment Clinician Date Palpitatio Palpitatio Disease Active 2021-06 M ethodi ns ns 2-20 st 00:00: Hospita 00 l SOB SOB Disease Active 2021-06 Methodi (shortness (shortness 2-20 st of breath) of breath) 00:00: Ho spita 00 l Pure Pure Disease Active 2021-06 Methodi hyperchole hyperchole 2-[address] sterolemia sterolemia 00:00: Ho spita 00 l Abdominal Abdominal Disease Active 2019-06 Met hodi pain pain 0-29 st 00:00: Hospita 00 l No known No known Disease Unive rs active active ity of problems problems [facility] Allergies, Adverse Reactions, Alerts Allergy Allergy Status Severity Reaction(s) Onset Inactive Treating Comm ents Source Name Type Date Date Clinician Other Propensi Active GI 2019-06 Cherries Method i Food ty to Intolerance 0-29 st adverse 00:00: Hospita reaction 00 l s Tramadol Propensi Active Hives 2019-06 Method i ty to 0-29 st adverse 00:00: Hospita reaction 00 l s to drug KRUSE DRUG Active N/V 2020-0 Univers INGREDI 3-22 ity of 00:00: [place] 00 [facility] TRAMADOL DRUG Active ITCHING 2020-0 Univers INGREDI 3-22 ity of 00:00: [place] 00 [facility] Kruse Propensi Active Nausea 2020-0 Univers ty to and/or 3-22 ity of adverse Vomiting 00:00: [place] reaction 00 Medical s Branch Tramadol Propensi Active Itching 2020-0 Unive rs ty to 3-22 ity of adverse 00:00: [place] reaction 00 Medical s Branch EPINEPHR DRUG Active Anxiety 2020-0 Univers INE INGREDI 3-21 ity of 00:00: [place] 00 [facility] Epinephr Propensi Active Anxiety 2020-0 Unive rs ine ty to 321 ity of adverse 00:00: [place] reaction 00 Medical s Branch Ephedrin Propensi Active 2016-0 Method i e ty to 10-18 st adverse 00:00: Hospita reaction 00 l s to drug Family History Family Member Diagnosis Comments Start Date Stop Date Source Natural father Cancer [facility] Natural father Hyperlipidemia [facility] Natural father Hypertension [facility]aternal [facility] Natural mother Cancer [facility] Natural mother Hyperlipidemia [facility] Natural mother Hypertension [facility] Natural mother Pulmonary embolism [facility] Paternal Cancer [facility] Social History Social Habit Start Date Stop Date Quantity Comments Source History [facility] Zoroastrianism Alcohol Comment Hospital History of tobacco Current smoker Un iversity of use [facility] History [facility] Zoroastrianism Alcohol Std Drinks Hospit al History [facility] Zoroastrianism Alcohol Binge Hospital History [facility] Social 2022-08-10 2022-08-10 5 [facility] Phone 00:00:00 00:00:00 Hospita l History [facility] Social 2022-08-10 2022-08-10 2 [facility] Get 00:00:00 00:00:00 Hospital Together History [facility] Social 2022-08-10 2022-08-10 3 [facility] Anabaptist 00:00:00 00:00:00 Hospit al History [facility] Social 2022-08-10 2022-08-10 1 [facility] 00:00:00 00:00:00 Hospital Membership History [facility] Social 2022-08-10 2022-08-10 3 [facility] 00:00:00 00:00:00 Hospital Meetings History [facility] Social 2022-08-10 2022-08-10 3 [facility] Living 00:00:00 00:00:00 Hospit al History [facility] Food 2022-08-10 2022-08-[address] Worry 00:00:00 00:00:00 Hospital History [facility] Food 2022-08-10 2022-08-[address] Scarcity 00:00:00 00:00:00 Hospital History SDHI 2022-08-10 2022-08-10 2 Zoroastrianism Transport Med 00:00:00 00:00:00 Hospital History SDHI 2022-08-10 2022-08-10 2 Zoroastrianism Transport Non-Med 00:00:00 00:00:00 Hospita l Alcohol intake 2022-07-31 2022-07-31 Lifetime Zoroastrianism 00:00:00 00:00:00 non-drinker Hospital (finding) Exposure to 2021-12-10 2021-12-20 Not sure University SARS-CoV-2 (event) 00:00:00 08:31:00 [facility] Tobacco use and 2020-01-21 2020-01-21 Smokeless Zoroastrianism exposure 00:00:00 00:00:00 tobacco non-user Hospital History SDOH 2020-01-21 2020-01-21 1 Zoroastrianism Alcohol Frequency 00:00:00 00:00:00 Hospita l Sex Ass[birth year] At [birth year] Universit y of 00:00:00 00:00:00 [facility] Smoking Status Start Date Stop Date Source Ex-smoker 2020-01-21 00:00:00 2020-01-21 00:00:00 [facility] Medications Ordered Filled Start Stop Current Ordering Indication Dosage Frequency Signature Comments Components Source Medication Medication Date Date Medication? Clinician (SIG) Name Name metoprolol Yes 25mg Q24H Take 1 Metho di tartrate 2-24 tablet (25 st (LOPRESSOR) 00:00: mg total) H ospita 25 mg 00 by mouth l tablet daily as needed (take 1/2 tab (12.5mg)). omeprazole Yes TAKE ONE Met hodi (PriLOSEC) 1-20 (1) st 40 MG 00:00: CAPSULE(S) Hospit a capsule 00 BY MOUTH l ONCE A DAY. rosuvastati 2021-06- Yes 10mg QD Take 1 Met hodi n (CRESTOR) 2-22 12-23 tablet (10 s t 10 mg 00:00: 05:59 mg total) Hospit a tablet 00 :00 by mouth l daily. UNABLE TO 2021-06- No Med Name: Me thodi FIND 2-20 12-[address] 09:07: 00:00 Patch. Hospita 28 :00 .075 l clonAZEPAM 2021-06- No .5mg Q.5D Take 0.5 Me thodi (KlonoPIN) 2-20 12-[address] 0.5 MG 09:05: 00:00 mouth 2 Hospita tablet 31 :00 (two) l times a day as needed for anxiety or seizures. acetaminoph 2021-06 Yes Method i en-caff-dih 2-20 st ydrocod 08:24: Hospita 320.5-30-16 45 l mg capsule diclofenac 2021-06 Yes Methodi (VOLTAREN) 2-20 st 1 % gel 08:24: Hospita 45 l pregabalin 2021-06 Yes TAKE ONE Met hodi (LYRICA) 1-16 (1) st 300 MG 00:00: CAPSULE(S) Hospi ta capsule 00 BY MOUTH l TWICE A DAY. omeprazole 2022- No TAKE ONE Me thodi (PriLOSEC) 12-25 01-20 (1) st 40 MG 00:00: 00:00 CAPSULE(S) Hospi ta capsule 00 :00 BY MOUTH l ONCE A DAY. pregabalin 2021- No [id number] 300mg Q.5D Take 1 Methodi (Lyrica) 4-20 10-[address] 300 MG 00:00: 04:59 (300 mg Hospita capsule 00 :00 total) by l mouth 2 (two) times a day for 180 days. acetaminoph Yes Method i en-caff-dih 1-05 st ydrocod 13:58: Hospita (Trezix) 00 l 320.5-30-16 mg capsule diclofenac Yes Methodi (VOLTAREN) 1-05 st 1 % gel 13:58: Hospita 00 l pregabalin 2021- No [id number] 300mg Q.5D Take 1 Methodi (Lyrica) 1- 07-[address] 300 MG 00:00: 04:59 (300 mg Hospita capsule 00 :00 total) by l mouth 2 (two) times a day for 180 days. pregabalin 2021- No [id number] 300mg Q.5D Take 1 Methodi (Lyrica) 1-03 04-[address] 300 MG 00:00: 00:00 (300 mg Hospita capsule 00 :00 total) by l mouth 2 (two) times a day for 180 days. omeprazole 2020-06 Yes TAKE ONE Met hodi (PriLOSEC) 2-30 (1) st 40 MG 00:00: CAPSULE(S) Hospit a capsule 00 BY MOUTH l ONCE A DAY. omeprazole 2020-06- No TAKE ONE Me thodi (PriLOSEC) 2-30 07-11 (1) st 40 MG 00:00: 00:00 CAPSULE(S) Hospi ta capsule 00 :00 BY MOUTH l ONCE A DAY. pregabalin 2020-06- No [id number] 225mg Q.5D Take 1 Methodi (Lyrica) 0-21 -[address] 225 MG 00:00: 00:00 (225 mg Hospita capsule 00 :00 total) by l mouth 2 (two) times a day for 180 days. pregabalin 2020-06- No TAKE ONE Me thodi (LYRICA) 0-19 10-21 (1) st 100 MG 00:00: 00:00 CAPSULE BY Hosp vinicius capsule 00 :00 MOUTH l EVERY EIGHT HOURS. tiZANidine 2020-06 Yes 4mg QD Take 4 mg Me thodi (ZANAFLEX) 0-[address] 4 MG tablet 00:00: nightly as Hospita 00 needed. l tiZANidine 2020-06 Yes 4mg QD Take 4 mg Me thodi (ZANAFLEX) 0-[address] 4 MG tablet 00:00: nightly as Hospita 00 needed. l buprenorphi 2020-06 Yes APPLY ONE M ethodi ne 7.5 0-09 (1) PATCH st mcg/hour 00:00: TO SKIN Hospit a patch 00 ONCE A l weekly WEEK NEEDED FOR PAIN. buprenorphi 2020-06- No APPLY ONE Methodi ne 7.5 0-09 12-20 (1) PATCH st mcg/hour 00:00: 00:00 TO SKIN Hospi ta patch 00 :00 ONCE A l weekly WEEK NEEDED FOR PAIN. scopolamine 2020-06 Yes APPLY ONE M ethodi (TRANSDERM- 0-[address] SCOP) 1 mg 00:00: SKIN Hospita over 3 days 00 BEHIND EAR l EVERY THREE DAYS NEEDED. scopolamine 2020-06- No APPLY ONE Methodi (TRANSDERM- 0-06 12-[address] SCOP) 1 mg 00:00: 00:00 SKIN Hospit a over 3 days 00 :00 BEHIND EAR l EVERY THREE DAYS NEEDED. omeprazole 2020-06- No 40mg QD Take 40 mg Methodi (PriLOSEC) 0-06 12-[address] 40 MG 00:00: 00:00 daily. Hospita capsule 00 :00 l lidocaine Yes APPLY TWO Met hodi (XYLOCAINE) 9-15 (2) GRAM st 5 % 00:00: TO Hospita ointment 00 AFFECTED l AREA THREE TIMES A DAY NEEDED FOR PAIN. lidocaine Yes APPLY TWO Met hodi (XYLOCAINE) 9-15 (2) GRAM st 5 % 00:00: TO Hospita ointment 00 AFFECTED l AREA THREE TIMES A DAY NEEDED FOR PAIN. sucralfate Yes TAKE ONE Me thodi (CARAFATE) 6-24 (1) st 1 gram 00:00: TABLET(S) Hospit a tablet 00 BY MOUTH l FOUR TIMES A DAY WITH MEALS AND NIGHTLY BEFORE GOING TO BED AND DINNER. sucralfate Yes TAKE ONE Me thodi (CARAFATE) 6-24 (1) st 1 gram 00:00: TABLET(S) Hospit a tablet 00 BY MOUTH l FOUR TIMES A DAY WITH MEALS AND NIGHTLY BEFORE GOING TO BED AND DINNER. budesonide- Yes 2{puff} 2 puffs. Methodi formoteroL 09-15 st (Symbicort) 00:00: Hospit a 160-4.5 00 l mcg/actuati on inhaler budesonide- 2021- No 2{puff} 2 puffs. Methodi formoteroL - 12-20 st (SYMBICORT) 00:00: 00:00 Hospi ta 160-4.5 00 :00 l mcg/actuati on inhaler cholecalcif Yes 1{capsu Take 1 M ethodi cash, 3-30 le} capsule by st vitamin D3, 00:00: mouth. Hosp vinicius 1,250 mcg 00 l (50,000 unit) capsule cholecalcif Yes [id number] Take 1 Me thodi cash, 3-[address] vitamin D3, 00:00: mouth. Hosp vinicius 1,250 mcg 00 l (50,000 unit) capsule sucralfate 2020- No 1g Q.25D Take 10 mL Methodi (Carafate) 3-26 -25 ([address] 100 mg/mL 00:00: 04:59 total) by Ho spita suspension 00 :00 mouth 4 l (four) times a day with meals and nightly for 90 days. Take 15 mins before meals and before going to bed omeprazole 2020- No [id number] 40mg QD Take 1 Methodi (PriLOSEC) 3-17 -[address] 40 MG 00:00: 04:59 (40 mg Hospita capsule 00 :00 total) by l mouth daily for 90 days. methylPREDN 2020-0 Yes [id number] 84mg Take 21 Univers ISolone 3-16 9101 tablets by ity of (MEDROL, 00:00: mouth [place] HARVEY,) 4 mg 00 SEE-INSTRU Med ical tablets CTIONS. Branch follow package directions methylPREDN 2020-0 Yes [id number] 84mg Take 21 Univers ISolone 3-16 9101 tablets by ity of (MEDROL, 00:00: mouth [place] HARVEY,) 4 mg 00 SEE-INSTRU Med ical tablets CTIONS. Branch follow package directions methylPREDN 2020-0 Yes [id number] 84mg Take 21 Univers ISolone 3-16 9101 tablets by ity of (MEDROL, 00:00: mouth [place] HARVEY,) 4 mg 00 SEE-INSTRU Med ical tablets CTIONS. Branch follow package directions methylPREDN 2020-0 Yes [id number] 84mg Take 21 Univers ISolone 3-16 9101 tablets by ity of (MEDROL, 00:00: mouth [place] HARVEY,) 4 mg 00 SEE-INSTRU Med ical tablets CTIONS. Branch follow package directions methylPREDN 1-0 Yes [id number] 84mg Take 21 Univers ISolone 3-16 9101 tablets by ity of (MEDROL, 00:00: mouth [place] HARVEY,) 4 mg 00 SEE-INSTRU Med ical tablets CTIONS. Branch follow package directions methylPREDN 1-0 Yes [id number] 84mg Take 21 Univers ISolone 3-16 9101 tablets by ity of (MEDROL, 00:00: mouth [place] HARVEY,) 4 mg 00 SEE-INSTRU Med ical tablets CTIONS. Branch follow package directions methylPREDN 2020-0 Yes [id number] 84mg Take 21 Univers ISolone 3-16 9101 tablets by ity of (MEDROL, 00:00: mouth [place] HARVEY,) 4 mg 00 SEE-INSTRU Med ical tablets CTIONS. Branch follow package directions methylPREDN 2020-0 Yes [id number] 84mg Take 21 Univers ISolone 3-16 9101 tablets by ity of (MEDROL, 00:00: mouth [place] HARVEY,) 4 mg 00 SEE-INSTRU Med ical tablets CTIONS. Branch follow package directions methylPREDN 2020-0 Yes [id number] 84mg Take 21 Univers ISolone 3-16 9101 tablets by ity of (MEDROL, 00:00: mouth [place] HARVEY,) 4 mg 00 SEE-INSTRU Med ical tablets CTIONS. Branch follow package directions methylPREDN 2020-0 Yes [id number] 84mg Take 21 Univers ISolone 3-16 9101 tablets by ity of (MEDROL, 00:00: mouth [place] HARVEY,) 4 mg 00 SEE-INSTRU Med ical tablets CTIONS. Branch follow package directions methylPREDN 0 Yes [id number] 84mg Take 21 Univers ISolone 3-16 9101 tablets by ity of (MEDROL, 00:00: mouth [place] HARVEY,) 4 mg 00 SEE-INSTRU Med ical tablets CTIONS. Branch follow package directions cyanocobala 2020- No [id number] 1000ug Q14D Inject 1 Methodi min 1,000 3-01 03-17 mL (1,000 st mcg/mL 00:00: 04:59 mcg total) Hosp vinicius injection 00 :00 into the l shoulder, thigh, or buttocks every 14 (fourteen) days for 2 doses. cholecalcif 2020- No [id number] Q7D Take 1 Methodi cash, 2-26 05-[address] vitamin D3, 00:00: 04:59 (50,000 Ho spita 1,250 mcg 00 :00 Units l (50,000 total) by unit) mouth once capsule a week for 90 days. omeprazole 2020- No [id number] 40mg QD Take 1 Methodi (PriLOSEC) 2-[address] 40 MG 00:00: 00:00 (40 mg Hospita capsule 00 :00 total) by l mouth daily for 90 days. UNABLE TO 2019-06 Yes Med Name: Met hodi FIND 2- Estrogen st 10:13: Patch. Hospita 14 .075 l clonAZEPAM 2019-06 Yes .5mg Q.5D Take 0.5 Met hodi (KlonoPIN) 2-[address] 0.5 MG 10:12: mouth 2 Hospita tablet 34 (two) l times a day as needed for anxiety or seizures. cyanocobala 2019-[address] 500 Methodi min, 2-[address] vitamin 00:00: the tongue Hosp vinicius B-12, 500 00 daily. l mcg tablet,disi ntegrating cyanocobala 2019-[address] 500 Methodi min, 2-[address] vitamin 00:00: the tongue Hosp vinicius B-12, 500 00 daily. l mcg tablet,disi ntegrating omeprazole 2019-06- No [id number] 40mg QD Take 1 Methodi (PriLOSEC) 208-[address] 40 MG 00:00: 00:00 (40 mg Hospita capsule 00 :00 total) by l mouth daily for 90 days. fluticasone 2020-0 Yes SPRAY TWO M ethodi propionate 9-17 (2) st (FLONASE) 00:00: SPRAY(S) Hosp vinicius 50 00 INTO EACH l mcg/actuati NOSTRIL on nasal ONCE spray DAILY. fluticasone 2020-0 Yes SPRAY TWO M ethodi propionate 9-17 (2) st (FLONASE) 00:00: SPRAY(S) Hosp vinicius 50 00 INTO EACH l mcg/actuati NOSTRIL on nasal ONCE spray DAILY. benzonatate 2020-0 Yes [id number] 200mg Take 1 Univers 200 mg 3-22 capsule by ity of capsule 00:00: mouth 3 00 (three) Medical times Branch daily as needed for Cough. traMADol 2020-0 Yes [id number] 50mg Take 1 Uni vers (ULTRAM) 50 3-22 tablet by ity of mg tablet 00:00: mouth [place] 00 every 6 Medical (six) Branch hours as needed for Pain (scale 7-10). benzonatate 2020-0 Yes [id number] 200mg Take 1 Univers 200 mg 3-22 capsule by ity of capsule 00:00: mouth 3 [place] 00 (three) Medical times Branch daily as needed for Cough. traMADol 2020-0 Yes [id number] 50mg Take 1 Uni vers (ULTRAM) 50 3-22 tablet by ity of mg tablet 00:00: mouth [place] 00 every 6 Medical (six) Branch hours as needed for Pain (scale 7-10). benzonatate 2020-0 Yes [id number] 200mg Take 1 Univers 200 mg 3-22 capsule by ity of capsule 00:00: mouth 3 [place] 00 (three) Medical times Branch daily as needed for Cough. traMADol 2020-0 Yes [id number] 50mg Take 1 Uni vers (ULTRAM) 50 3-22 tablet by ity of mg tablet 00:00: mouth [place] 00 every 6 Medical (six) Branch hours as needed for Pain (scale 7-10). benzonatate 2020-0 Yes [id number] 200mg Take 1 Univers 200 mg 3-22 capsule by ity of capsule 00:00: mouth 00 (three) Medical times Branch daily as needed for Cough. traMADol 2020-0 Yes [id number] 50mg Take 1 Uni vers (ULTRAM) 50 3-22 tablet by ity of mg tablet 00:00: mouth [place] 00 every 6 Medical (six) Branch hours as needed for Pain (scale 7-10). benzonatate 2020-0 Yes [id number] 200mg Take 1 Univers 200 mg 3-22 capsule by ity of capsule 00:00: mouth 00 (three) Medical times Branch daily as needed for Cough. traMADol 2020-0 Yes [id number] 50mg Take 1 Uni vers (ULTRAM) 50 3-22 tablet by ity of mg tablet 00:00: mouth [place] 00 every 6 Medical (six) Branch hours as needed for Pain (scale 7-10). benzonatate 2020-0 Yes [id number] 200mg Take 1 Univers 200 mg 3-22 capsule by ity of capsule 00:00: mouth 3 00 (three) Medical times Branch daily as needed for Cough. traMADol 2020-0 Yes [id number] 50mg Take 1 Uni vers (ULTRAM) 50 3-22 tablet by ity of mg tablet 00:00: mouth [place] 00 every 6 Medical (six) Branch hours as needed for Pain (scale 7-10). benzonatate 2020-0 Yes [id number] 200mg Take 1 Univers 200 mg 3-22 capsule by ity of capsule 00:00: mouth 3 [place] 00 (three) Medical times Branch daily as needed for Cough. traMADol 2020-0 Yes [id number] 50mg Take 1 Uni vers (ULTRAM) 50 3-22 tablet by ity of mg tablet 00:00: mouth [place] 00 every 6 Medical (six) Branch hours as needed for Pain (scale 7-10). benzonatate 2020-0 Yes [id number] 200mg Take 1 Univers 200 mg 3-22 capsule by ity of capsule 00:00: mouth 00 (three) Medical times Branch daily as needed for Cough. traMADol 2020-0 Yes [id number] 50mg Take 1 Uni vers (ULTRAM) 50 3-22 tablet by ity of mg tablet 00:00: mouth [place] 00 every 6 Medical (six) Branch hours as needed for Pain (scale 7-10). benzonatate 2020-0 Yes [id number] 200mg Take 1 Univers 200 mg 3-22 capsule by ity of capsule 00:00: mouth 00 (three) Medical times Branch daily as needed for Cough. traMADol 2020-0 Yes [id number] 50mg Take 1 Uni vers (ULTRAM) 50 3-22 tablet by ity of mg tablet 00:00: mouth [place] 00 every 6 Medical (six) Branch hours as needed for Pain (scale 7-10). benzonatate 2020-0 Yes [id number] 200mg Take 1 Univers 200 mg 3-22 capsule by ity of capsule 00:00: mouth (three) Medical times Branch daily as needed for Cough. traMADol 2020-0 Yes [id number] 50mg Take 1 Uni vers (ULTRAM) 50 3-22 tablet by ity of mg tablet 00:00: mouth [place] 00 every 6 Medical (six) Branch hours as needed for Pain (scale 7-10). benzonatate 2020-0 Yes [id number] 200mg Take 1 Univers 200 mg 3-22 capsule by ity of capsule 00:00: mouth 3 [place] 00 (three) Medical times Branch daily as needed for Cough. traMADol 2020-0 Yes [id number] 50mg Take 1 Uni vers (ULTRAM) 50 3-22 tablet by ity of mg tablet 00:00: mouth [place] 00 every 6 Medical (six) Branch hours as needed for Pain (scale 7-10). Immunizations Ordered Immunization Filled Immunization Date Status Commen ts Source Name Name JERMAIN VASQUEZ 2021-04-11 Completed [facility] AD26 VACCINATION 00:00:00 [facility] JERMAIN DARDEN-Juliana 2020-08-23 Completed [facility] AD26 VACCINATION 00:00:00 Hospital Vital Signs Vital Name Observation Time Observation Value Comments Source Systolic blood 2022-07-31 18:35:00 118 mm[Hg] [facility] Hospital pressure Diastolic blood 2022-07-31 18:35:00 69 mm[facility]Hg[facility] pressure Heart rate 2022-07-31 18:35:00 72 /min [facility] Respiratory rate 2022-07-31 18:35:00 16 /min [facility] Oxygen saturation in 2022-07-31 18:35:00 99 /min [facility] Arterial blood by Pulse oximetry Body height 2022-07-31 18:02:00 165.1 cm [facility] Body weight 2022-07-31 18:02:00 111.585 kg [facility] BMI 2022-07-31 18:02:00 40.94 kg/m2 [facility] Systolic blood 2021-06-21 19:57:00 132 mm[Hg] Method [facility] Hospital pressure Diastolic blood 2021-06-21 19:57:00 82 mm[Hg] [facility] Hospital pressure Heart rate 2021-06-21 19:57:00 76 /min [facility] Body temperature 2021-06-21 19:57:00 36.5 Tawny [facility] Respiratory rate 2021-06-21 19:57:00 18 /min [facility] Body height 2021-06-21 19:57:00 165.1 cm [facility] Body weight 2021-06-21 19:57:00 117.935 kg [facility] BMI 2021-06-21 19:57:00 43.27 kg/m2 [facility] Oxygen saturation in 2020-11-11 15:09:00 96 /min [facility] Arterial blood by Pulse oximetry Procedures Procedure Date / Time Performing Clinician Source Performed CV CTA CORONARY ARTERIES W 2022-07-31 18:41:15 [facility] CONTRAST CT CARDIAC OVERREAD 2022-07-31 18:07[facility]40 [facility] 2022-07-31 17:56:00 [facility]e [facility] ESTIMATED GFR 2022-07-31 17:56:00 Annalee [facility] TTE COMPLETE, WO CONTRAST, 2022-06-29 17:50:34 [facility] W DOPPLER ([id number]) CV TREADMILL STRESS TEST 2022-06-29 16:12:03 Annalee [facility] LIPID PANEL 2022-06-05 15:21:00 Annalee [facility] AST (SGOT) 2022-06-05 15:21:00 Ann[facility]e [facility] ECG 12-LEAD 2022-06-05 14:27:33 Annalee [facility] BI ULTRASOUND BREAST 2022-01-02 15:49:19 Requisition, Paper [facility] LIMITED LEFT Medical Branch NOTICE OF PRIVACY 2021-12-25 13:43:01 Doctor Unassigned, [facility] PRACTICES [place] [facility] CONSENT/REFUSAL FOR 2021-12-25 13:42:44 Doctor Unassigned, [facility] DIAGNOSIS AND TREATMENT [place] [facility] ASSIGNMENT OF BENEFITS 2021-12-25 13:42:30 Doctor Unassigned, [facility] [place] [facility] MR LUMBAR SPINE WO 2021-05-02 16:29:17 [facility] MR CERVICAL SPINE WO 2021-05-02 16:28:14 Requisition, Paper [facility] CONTRAST Medical Branch ASSIGNMENT OF BENEFITS 2021-05-02 14:46:42 Doctor Unassigned, [facility] [place] [facility] XR HIPS 3 VW BILATERAL 2021-04-11 16:32:13 [facility] ASS[facility] OF BENEFITS 2021-04-11 15:43:14 Doctor Unassigned, [facility] [place] [facility] COMPREHENSIVE METABOLIC 2021-04-11 12:50:00 Josseline, [facility] PANEL LIPID PANEL 2021-04-11 12:50:00 Josseline, [facility] TOTAL IRON BINDING 2021-04-11 12:50:00 Josseline, [facility] CAPACITY T4, FREE 2021-04-11 12:50:00 Josseline, [facility] THYROID STIMULATING 2021-04-11 12:50:00 Josseline, [facility] Met [facility] HORMONE HEMOGLOBIN A1C 2021-04-11 12:50:00 Josseline, [facility] PARATHYROID HORMONE 2021-04-11 12:50:00 Josseline, [facility] Met [facility] CBC WITH PLATELET AND 2021-04-11 12:50:00 Josseline, [facility] DIFFERENTIAL VITAMIN A LEVEL, PLASMA OR 2021-04-11 12:50:00 Josseline, [facility] SERUM VITAMIN B12 LEVEL 2021-04-11 12:50:00 Josseline, [facility] VITAMIN D 25 HYDROXY LEVEL 2021-04-11 12:50:00 Josseline, [facility] COPPER LEVEL, SERUM 2021-04-11 12:50:00 Josseline, [facility] FOLATE LEVEL 2021-04-11 12:50:00 Josseline, [facility] FERRITIN LEVEL 2021-04-11 12:50:00 Josseline, [facility] VITAMIN B1 LEVEL, WHOLE 2021-04-11 12:50:00 Josseline, [facility] BLOOD ZINC LEVEL, SERUM 2021-04-11 12:50:00 Josseline, [facility] T3 2021-04-11 12:50:00 Josseline, [facility] CREATINE KINASE, TOTAL 2021-04-11 12:46:00 [facility] ([facility]) ALDOLASE, SERUM 2021-04-11 12:46:00 [facility] LACTIC ACID LEVEL 2021-04-11 12:46:00 [facility] FOLATE LEVEL 2021-04-11 12:46:00 [facility] SEDIMENTATION RATE 2021-04-11 12:46:00 [facility] C-REACTIVE PROTEIN 2021-04-11 12:46:00 [facility] VITAMIN B12 LEVEL 2021-04-11 12:46:00 [facility] VITAMIN D 25 HYDROXY LEVEL 2021-04-11 12:46:00 [facility] VITAMIN B1 LEVEL, WHOLE 2021-04-11 12:46:00 [facility] BLOOD SERUM ELECTROPHORESIS 2021-04-11 12:46:00 [facility] IMMUNOFIXATION, SERUM 2021-04-11 12:46:00 [facility] DEBORAH SCREEN W IFA W REFLEX 2021-04-11 12:46:00 [facility] TO TITER VITAMIN B12 LEVEL 2020-11-15 14:24:00 [facility] VITAMIN D 25 HYDROXY LEVEL 2020-11-15 14:24:00 [facility] CBC WITH PLATELET AND 2020-11-15 14:24:00 [facility] DIFFERENTIAL Plan of Care Planned Activity Planned Date Details Comments Source Future Scheduled 2022-08-15 Pneumococcal Vaccine: [facility] Test 01:14:03 Pediatrics (0 to 5 Years) and At-Risk Patients (6 to 64 Years) (1 - PCV) [code = Pneumococcal Vaccine: Pediatrics (0 to 5 Years) and At-Risk Patients (6 to 64 Years) (1 - PCV)] Future Scheduled 2022-08-15 Hepatitis C screening [facility] Test 01:14:03 (procedure) [code = 503088548] Future Scheduled 2022-08-15 Screening for [facility] Test 01:14:03 malignant neoplasm of cervix (procedure) [code = 595124356] Future Scheduled 2022-08-15 COLONOSCOPY SCREENING [facility] Test 01:14:03 [code = COLONOSCOPY SCREENING] Future Scheduled 2022-08-15 SHINGLES VACCINES (1 [facility] Test 01:14:03 of 2) [code = SHINGLES VACCINES (1 of 2)] Future Scheduled 2022-08-15 COVID-19 VACCINE (3 - [facility] Test 01:14:03 Booster for Jermain series) [code = COVID-19 VACCINE (3 - Booster for Jermain series)] Future Scheduled 2022-08-[address] [facility] Test 01:14:03 [code = INFLUENZA VACCINE] Future Scheduled 2022-08-15 BREAST CANCER [facility] Test 01:14:03 SCREENING [code = BREAST CANCER SCREENING] Future Scheduled 2021-07-13 Hepatitis C screening [facility] Test 02:05:07 (procedure) [code = 435776421] Future Scheduled 2021-07-13 Screening for [facility] Test 02:05:07 malignant neoplasm of cervix (procedure) [code = 690293547] Future Scheduled 2021-07-13 BREAST CANCER [facility] Test 02:05:07 SCREENING [code = BREAST CANCER SCREENING] Future Scheduled 2021-07-13 COLONOSCOPY SCREENING [facility] Test 02:05:07 [code = COLONOSCOPY SCREENING] Future Scheduled 2021-07-13 SHINGLES VACCINES (#1) [facility] Test 02:05:07 [code = SHINGLES VACCINES (#1)] Encounters Start End Encounter Admission Attending Care Care Encounter Source Date/Time Date/Time Type Type Clinicians Facility Department ID 2022-08-10 2022-08-10 [facility] 1.2.840.1 [id number] Methodi 11:30:00 15:39:03 Consult Annalee Rosas 18256.1.[address] 3.430.2.7 Hospit a .3.416598 l .8 2022-08-10 2022-08-10 Outpatient [facility] [id number] [address] [place] [address] 00:00:00 00:00:00 ANNALEE [address] 2022-07-31 2022-07-31 [facility], 1.2.840.1 [id number] 03113 Methodi 12:07:39 23:59:00 Encounter Annalee Rosas 22131.1.[address] 3.430.2.7 Hospit a .3.205901 l .8 2022-07-31 2022-07-31 [facility] 1.2.840.1 [id number] [id number] Methodi 11:28:33 12:06:00 Encounter Annalee R. 50180.1.[address] 3.430.2.7 Hospit a .3.772765 l .8 2022-07-31 2022-07-31 Travel 1.2.840.1 1.2.512.096 9014 [id number] Methodi 00:00:00 00:00:[address] 3.430.2.7 0.2.7.3.698 Ho spita .3.657251 084.8 l .8 2022-07-31 2022-07-31 Outpatient [facility] [id number] 002 [place] 00:00:00 00:00:00 ANNALEE [address] 2022-07-31 2022-07-31 Outpatient [facility] [id number] 931 [place] 00:00:00 00:00:00 ANNALEE [address] 2022-07-30 2022-07-30 Documentat Lashawn, 1.2.840.1 [id number] 778 [id number] Methodi 00:00:00 00:00:00 ion Dalia Quintero 77341.1.[address] 3.430.2.7 Hospit a .3.278252 l .8 2022-07-27 2022-07-27 Travel 1.2.840.1 1.2.312.917 6337 202461 Methodi 00:00:00 00:00:[address] 3.430.2.7 0.2.7.3.698 Ho spita .3.167874 084.8 l .8 2022-07-18 2022-07-18 Travel 1.2.840.1 1.2.755.708 5387 835263 Methodi 00:00:00 00:00:[address] 3.430.2.7 0.2.7.3.698 Ho spita .3.621845 084.8 l .8 2022-07-03 2022-07-03 Refill Brendon, 1.2.840.3 [id number] 69557 Methodi 00:00:00 00:00:[address] 3.430.2.7 Hospit a .3.645527 l .8 2022-06-29 2022-06-29 Travel 1.2.840.1 1.2.202.979 7045 [id number] Methodi 00:00:00 00:00:[address] 3.430.2.7 0.2.7.3.698 Ho spita .3.142000 084.8 l .8 2022-06-29 2022-06-29 Outpatient [facility] [id number] 106 [place] 00:00:00 00:00:00 ANNALEE [address] 2022-06-29 2022-06-29 Outpatient [facility] [id number] 106 [place] 00:00:00 00:00:00 ANNALEE [address] 2022-06-07 2022-06-07 Orders Eliseo, 1.2.840.1 [id number] [id number] Methodi 00:00:00 00:00:00 Only Briana 76810.1.[address] 3.430.2.7 Hospit a .3.462257 l .8 2022-06-05 2022-06-05 Office Leroy, 1.2.840.1 [id number] 4517 Methodi 08:10:00 13:53:09 Visit Annalee Rosas 03803.1.[address] 3.430.2.7 Hospit a .3.458952 l .8 2022-06-05 2022-06-05 Lab Leroy, 1.2.840.1 [id number] 6245 Methodi 09:25:00 09:30:00 Annale[address] 31372.1.[address] 3.430.2.7 Hospit a .3.142330 l .8 2022-06-05 2022-06-05 Outpatient [facility] [id number] 109 [place] 00:00:00 00:00:[address] 2022-06-05 2022-06-05 Travel 1.2.840.1 1.2.635.743 0930 [id number] Methodi 00:00:00 00:00:[address] 3.430.2.7 0.2.7.3.698 Ho spita .3.444674 084.8 l .8 2022-06-05 2022-06-05 Outpatient [facility] [id number] 165 [place] 00:00:00 00:00:00 ANNALEE [address] 2022-05-02 2022-05-02 Gokul Marx 1.2.840.1 [id number] 21 [id number] Methodi 00:00:00 00:00:[address] 3.430.2.7 Hospit a .3.505832 l .8 2022-05-01 2022-05-01 Gokul Marx 1.2.840.1 [id number] 21 [id number] Methodi 00:00:00 00:00:[address] 3.430.2.7 Hospit a .3.383263 l .8 2022-01-02 2022-01-02 [facility] Radiology [facility] 1.2.840.114 [id number] [id number] Univers 10:13:17 23:59:00 Encounter SPECIALTY 350.1.13.10 ity of CARE 4.2.7.2.686 [facility] AT [phone] [address] 2022-01-02 2022-01-02 Outpatient R RADIOLOGY [facility] [id number] Univers 10:12:47 10:12:00 ity [facility] 2022-01-02 2022-01-02 [facility] Radiology [facility] 1.2.840.114 [id number] Univers 10:00:00 10:12:00 Encounter SPECIALTY 350.1.13.10 it[place] [id number] [place] [address] 2021-12-25 2021-12-25 Outpatient R RADIOLOGY [facility] [id number] Univers 08:44:49 23:59:00 ity [facility] 2021-12-25 2021-12-25 Hospital Radiology [facility] 1.2.840.114 [id number] [facility] 08:40:00 23:59:00 Encounter [place] 350.1.13.10 ity of [place] 4.2.7.2.686 [facility] [id number] [facility] [address] 2021-12-24 2021-12-24 Refill Josseline, 1.2.840.8 [id number] 15777 Methodi 00:00:00 00:00:[address] [place] 3.430.2.7 Hospit a .3.572675 l .8 2021-11-01 2021-11-01 Telephone Cory, 1.2.840.1 [id number] 2099 [id number] Methodi 00:00:00 00:00:[address] 3.430.2.7 Hospit a .3.987539 l .8 2021-10-04 2021-10-04 Telemedici [facility] [place] 1.2.840.1 [id number] Methodi 15:30:00 15:44:[address] 3.430.2.7 Hospit a .3.559839 l .8 2021-10-04 2021-10-04 Outpatient GOKUL [facility] 875 [id number] [place] 00:00:00 00:00:[address] 2021-07-12 2021-07-12 [facility] FLIP MCKINNEY 1.2.840.1 [id number] 2099 [id number] [place] 00:00:00 00:00:00 Encounter 69258.1.[address] .3.074025 .8 2021-07-12 2021-07-12 [facility] FLIP MCKINNEY 1.2.840.1 [id number] 2099 [id number] [place] 00:00:00 00:00:00 Encounter 29475.1.[address] .3.378086 .8 2021-06-28 2021-06-28 Outpatient R RADIOLOGY [facility] [id number] Univers 10:52:53 23:59:00 ity of [facility] 2021-06-28 2021-06-28 Hospital Radiology [facility] 1.2.840.114 904 [id number] Univers 10:52:53 23:59:00 Encounter VAIBHAV 350.1.13.10 ity [facility] 4.2.7.2.686 [facility] [id number] [facility] [address] 2021-06-21 2021-06-21 Office Flip Mckinney 1.2.840.1 [id number] 88090 Methodi 13:17:26 15:24:10 Visit Santiago 44273.1.[address] 3.430.2.7 Hospit a .3.812034 l .8 2021-06-21 2021-06-21 Travel 1.2.840.1 1.2.717.525 7093 [id number] Methodi 00:00:00 00:00:[address] 3.430.2.7 0.2.7.3.698 Ho spita .3.777798 084.8 l .8 2021-06-20 2021-06-20 Trav Ray, 1.2.840.1 [id number] 0356 Methodi 00:00:00 00:00:00 Only Dee Dee 50729.1.[address] 3.430.2.7 Hospit a .3.942060 l .8 2021-06-19 2021-06-19 Telemedici [facility] [place] 1.2.840.1 [id number] Methodi 11:23:49 12:16:[address] 3.430.2.7 Hospit a .3.033468 l .8 2021-06-15 2021-06-15 Caitlin Cui 1.2.840.4 [id number] 57751 27076 Methodi 00:00:00 00:00:[address] [place] 3.430.2.7 Hospit a .3.474256 l .8 2021-06-13 2021-06-13 Outpatient R RADIOLOGY [facility] [id number] Univers 15:32:14 23:59:00 ity of [facility] 2021-06-13 2021-06-13 Hospital Radiology [facility] 1.2.840.114 [id number] Univers 15:30:00 23:59:00 Encounter [place] 350.1.13.10 ity [facility] 4.2.7.2.686 [facility] [id number] [facility] [address] 2021-05-22 2021-05-22 Telemedici Josseline, 1.2.840.1 [id number] Methodi 09:26:17 10:02:18 ne Melva 93545.1.[address] [place]ena 3.430.2.7 Hospit a .3.786537 l .8 2021-05-22 2021-05-22 Orders Josseline, 1.2.840.1 [id number] 36309 Methodi 00:00:00 00:00:00 Only Melva 59791.1.[address] [place]ena 3.430.2.7 Hospit a .3.646664 l .8 2021-05-02 2021-05-02 [facility] Radiology [facility] 1.2.840.114 [id number] [id number] Univers 08:54:45 23:59:00 Encounter [place] 350.1.13.10 ity of [facility] 4.2.7.2.686 [facility] [id number] [facility] [address] 2021-05-02 2021-05-02 Outpatient R RADIOLOGY [facility] [id number] Univers 08:53:07 08:53:07 ity of [facility] 2021-05-02 2021-05-02 Hospital Radiology [facility] 1.2.840.114 [id number] [id number] Univers 08:53:07 08:53:07 Encounter [place] 350.1.13.10 ity of [facility] 4.2.7.2.686 [facility] [id number] [facility] [address] 2021-05-02 2021-05-02 Orders Doctor MCGEE 1.2.840.114 [id number] Univers 00:00:00 00:00:00 Only Unassigned, CHRIS 350.1.13.10 ity of [place] [facility] 4.2.7.2.686 Sonu as [id number] [facility] [address] 2021-04-18 2021-04-18 Outpatient R RADIOLOGY [facility] [id number] Univers 00:00:00 00:00:00 ity of [facility] 2021-04-11 2021-04-11 Hospital Radiology [facility] 1.2.840.114 [id number] Univers 10:45:00 23:59:00 Encounter [place] 350.1.13.10 ity of [place] [facility].7.2.686 [facility] [id number] [facility] [address] 2021-04-11 2021-04-11 Outpatient R RADIOLOGY [facility] RAD [id number] Univers 00:00:00 23:59:00 ity of [facility] 2021-04-11 2021-04-11 Hospital Radiology [facility] 1.2.840.114 [id number] [id number] Univers 10:30:00 10:44:00 Encounter [place] 350.1.13.10 ity of [place] 4.2.7.2.686 [facility] [id number] [facility] [address] [place] 2021-04-11 2021-04-11 Orders Doctor ARELY 1.2.840.114 [id number] Univers 00:00:00 00:00:00 Only Unassigned, CHRIS 350.1.13.10 ity of [place] [facility] 4.2.7.2.686 Sonu as [id number] [facility] [address] [place] 2021-04-06 2021-04-06 Office [facility] [place] 1.2.840.1 [id number] Methodi 09:34:41 10:40:[address] 3.430.2.7 Hospit a .3.273441 l .8 2021-04-06 2021-04-06 Travel 1.2.840.1 1.2.368.468 3361 [id number] Methodi 00:00:00 00:00:[address] 3.430.2.7 0.2.7.3.698 Ho spita .3.355178 084.8 l .8 2021-01-24 2021-01-24 Transcribe Cueva, 1.2.840.1 [id number] Methodi 00:00:00 00:00:00 Orders Ling 66100.1.[address] 3.430.2.7 Hospit a .3.762525 l .8 2020-12-17 2020-12-17 Outpatient R RADIOLOGY [facility] 85576 [id number] [facility] 00:00:00 00:00:00 [facility] 2020-12-08 2020-12-08 Refill Josseline, 1.2.840.1 [id number] 1469 Methodi 00:00:00 00:00:[address] [place] 3.430.2.7 Hospit a .3.524663 l .8 2020-11-25 2020-11-25 Outpatient R RADIOLOGY [facility] [id number] 10109 [facility] 00:00:00 00:00:00 [facility] 2020-11-11 2020-11-11 Office Josseline, 1.2.840.1 [id number] 8160 Methodi 10:05:44 11:56:13 Visit Melva 60555.1.[address] [place] 3.430.2.7 Hospit a .3.776978 l .8 2020-11-11 2020-11-11 Travel 1.2.840.1 1.2.349.238 3195 [id number] Methodi 00:00:00 00:00:[address] 3.430.2.7 0.2.7.3.698 Ho spita .3.366744 084.8 l .8 2020-11-11 2020-11-11 [facility] [id number] 546 [place] 00:00:00 00:00:00 GONZÁLEZ [address] 2020-10-19 2020-10-19 Outpatient R RADIOLOGY [facility] [id number] Univers 00:00:00 00:00:00 [facility] 2020-09-27 2020-09-27 Outpatient R RADIOLOGY [facility] [id number] Univers 00:00:00 00:00:00 [facility] 2020-09-19 2020-09-19 Telephone Sue Rivera 1.2.840.1 [id number] Methodi 00:00:00 00:00:[address] 3.430.2.7 Hospit a .3.595100 l .8 2020-09-15 2020-09-15 Outpatient R BETTIE, [facility] [id number] Univers 16:00:00 16:00:00 DAVE [facility] 2020-09-09 2020-09-09 Orders Josseline 1.2.840.6 [id number] 93896 Methodi 00:00:00 00:00:00 Only Melva 53345.1.[address] [place] 3.430.2.7 Hospit a .3.200954 l .8 2020-09-01 2020-09-01 Outpatient R GALE, [facility] [id number] Univers 14:00:00 14:00:00 MATT [facility] 2020-08-31 2020-08-31 Telephone Josseline 1.2.840.2 [id number] [id number] Methodi 00:00:00 00:00:[address] [place] 3.430.2.7 Hospit a .3.185050 l .8 2020-08-30 2020-08-30 Outpatient [facility] [id number] Univers 13:15:00 13:15:00 STACY [facility] 2020-08-25 2020-08-25 Outpatient R RADIOLOGY [facility] [id number] Univers 00:00:00 00:00:00 [facility] 2020-08-15 2020-08-15 Trav Cui 1.2.840.8 [id number] 86140 Methodi 00:00:00 00:00:00 Only Melva 92361.1.[address] [place] 3.430.2.7 Hospit a .3.445018 l .8 2020-08-15 2020-08-15 Telephone Kelly 1.2.840.8 [id number] 076 [id number] Methodi 00:00:00 00:00:00 Sanchez, 64824.1.[address] Patricia 3.430.2.7 Hospit a .3.389214 l .8 2020-08-12 2020-08-12 Telephone Josseline, 1.2.840.5 [id number] Methodi 00:00:00 00:00:[address] [place] 3.430.2.7 Hospit a .3.342188 l .8 2020-08-10 2020-08-10 Telephone Brendon, 1.2.840.2 [id number] 071 [id number] Methodi 00:00:00 00:00:[address] 3.430.2.7 Hospit a .3.183536 l .8 2020-08-05 2020-08-05 Orders Josseline, 1.2.840.1 [id number] 9001 Methodi 00:00:00 00:00:00 Only Melva 10079.1.[address] [place] 3.430.2.7 Hospit a .3.069000 l .8 2020-07-26 2020-07-26 Telephone Brendon, 1.2.840.1 [id number] Methodi 00:00:00 00:00:[address] 3.430.2.7 Hospit a .3.445562 l .8 2020-05-17 2020-05-17 Outpatient JOSSELINE, [facility] [id number] 319 [place] 00:00:00 00:00:00 MELVA [address] 2020-04-14 2020-04-15 Outpatient BRENDON, [facility] 671 [id number] 537 [place] 00:00:00 00:00:[address] KALIN [address] 2020-01-21 2020-01-21 Outpatient SUE RIVERA [facility] [id number] [place] 00:00:00 00:00:[address] 2019-09-07 2019-09-07 Office Pob1, Acute [facility] 1.2.840.114 [id number] 14:58:21 16:00:22 Visit Care [facility] 350.1.13.10 [place] 4.2.7.2.686 [place] [id number] nal [address] 2019-09-07 2019-09-07 Outpatient R KEI, [facility] [id number] Univers 15:00:00 15:00:00 PRABHAKAR campbell [facility] 2019-09-05 2019-09-06 Emergency X ELISSA, [facility] ERT [id number] Univers 22:06:25 01:52:00 ADARSH campbell [facility] Results Test Description Test Time Test Comments Results Result Comments Source POC creatinine 2022-07-31 17:59:00 Test Item Value Reference Range Interpretation Comme nts POC creatinine (test code = 0.8 mg/dl 0.5-0.9 Integrated Specialist Name: Janice [id number]) MayraDevice ID: [id number] [facility] [id number] 17:59:00 Test Item Value Reference Range Interpretation Comments Estimated GFR (test 85 mL/min/1.73 m2 [facility] Units code = 21922-3) Interpretati onG1 >=90 Normal or highG 2 60-89 Mildly decrease dG3a 45-59 Mildly to moder ately qyqlqrjhcS0n 30 -44 Moderately to s everely decreasedG4 15- 29 Severely decreasedG5 <15 Kidney failureThe eGFR was calculated usin g the Chronic Kidney Disease Epidemiology Co llaboration (CKD-EPI) equat ion. Interpretation is based on recommendations of the National Kidney Foundation-Kidn ey Disease Outcomes Qualit y Initiative (NKF-KDOQI) pub lished in 2014. [facility] CenterEC 12 [id number] 19:12:01 Test Item Value Reference Range Interpretation Comments Ventricular rate (test 77 code = 253) Atrial rate (test code 77 = 255) MT interval (test code 148 = 266) QRSD interval (test 82 code = 260) QT interval (test code 378 = 264) QTC interval (test 427 code = 265) P axis 1 (test code = 74 267) QRS axis 1 (test code 58 = 268) T wave axis (test code 76 = 270) EKG impression (test Normal sinus code = 273) rhythm-Normal ECG-In automated comparison with ECG of 05-JUN-2022 08:26,-Previous ECG has undetermined rhythm, needs review- [facility] CenterCreatine kinase, total (CPK)2021-04-15 00:20:00 Test Item Value Reference Range Interpretation Comments Creatine kinase (test 67 U/L 29-143 code = 2157-6) RYAN (test code = RYAN) FASTING:YES FASTING: YES RAC (test code = RAC) Performing Organization Information: Site ID: [id number] Name: [facility] Address: [address] [place] [address] Director: Jagjit Mahoney [facility] Cancer CenterLactic acid [id number] 00:20:00 Test Item Value Reference Range Interpretation Comments Lactic acid (test 1.4 mmol/L 0.4-1.8 code = 33713-3) RYAN (test code = FASTING:YES FASTING: YES RYAN) RAC (test code = Performing Organization RAC) Information: Site ID: [id number] Name: [facility] Address: [address] [place] [address] Director: Dr. Jagjit Mahoney [facility] [id number] 00:20:00 Test Item Value Reference Interpretation Comments Range Protein (test code 6.8 g/dL 6.1-8.1 = 2885-2) Albumin, S (test 4.1 g/dL 3.8-4.8 code = 2862-1) Pxqxr-7-cuorivly 0.3 g/dL 0.2-0.3 (test code = 2865-4) Yvfgk-2-hxrmwtzs 0.7 g/dL 0.5-0.9 (test code = 2868-8) Beta-1 globulin 0.4 g/dL 0.4-0.6 (test code = 32222-5) Beta-2 globulin 0.3 g/dL 0.2-0.5 (test code = 33713-9) Gamma globulin 1.0 g/dL 0.8-1.7 (test code = 2874-6) Interpretation Normal (test code = Electrophoretic 08738-0) Pattern RYAN (test code = FASTING:YES RYAN) FASTING: YES RAC (test code = Performing RAC) Organization Information: Site ID: IG Name: [facility] Address: [address] [place] [id number] Director: Dr. [facility] [id number] 00:20:00 Test Item Value Reference Range Interpretation Comments CRP (test code = 1.8 mg/L <8.0 1988-5) RYAN (test code = FASTING:YES FASTING: YES RYAN) RAC (test code = Performing Organization RAC) Information: Site ID: [facility]GA [facility] Address: [address] [place] [address] Director: [facility] [id number] 00:20:00 Test Item Value Reference Range Interpretation Comments Sedimentation rate 6 mm/h See_Comment [Automat ed (test code = 4537-7) message ] The system which generated this result transmitted reference range : < OR = 20. The reference range was not used to interpret this result as normal/abnormal . RYAN (test code = FASTING:YES RYAN) FASTING: YES RAC (test code = Performing RAC) Organization Information: Site ID: RGA Name: [facility] Address: [address] [place] [address] Director: Jagjit Mahoney [employer] [facility], [id number] 00:20:00 Test Item Value Reference Range Interpretation Comments Aldolase (test 4.7 U/L See_Comment [Automated code = 1761-6) message] The system which generated this result transmit david reference range : < OR = 8.1. The reference range was not used to interpret this result as normal/abnormal . RYAN (test code = FASTING:YES FASTING: RYAN) YES RAC (test code = Performing RAC) Organization Information: Site ID: IG [facility] Address: [address] [place] [id number] Director: Dr. Jagjit Cole [facility] W IFA W REFLEX TO [id number] 00:20:00 Test Item Value Reference Range Interpretation Comments DEBORAH Screen NEGATIVE NEGATIVE DEBORAH IFA is a fi rst line (test code = screen for dete cting 40777-3) thepresence of up to approximately 1 50 autoantibodies invarious autoimmune dise ases. A negative DEBORAH IF A resultsuggests an DEBORAH-associated autoimmune disease is notp resent at this time, but is not definitive. If thereis high clinical s uspicion for Sjogren's syndrome,testin g for anti-SS-A/Ro an tibody should be considered.Anti -Lashonda-1 antibody should be considered for clinicallysuspe cted inflammatory my opathies. AC-0: Negative International C onsensus on DEBORAH Patterns(https: //doi.org/ [email or web address]) For additional information, pl ease refer [email or web address]/ faq/[email or web address] (This link is b eing provided for informational/e ducational purposes only.) RYAN (test FASTING:YES code = RYAN) FASTING: YES RAC (test Performing code = RAC) Organization Information: Site ID: [id number] Name: [facility] Address: [address] [place] [id number] Director: Dr. Jagjit Mahoney [facility] CenterImmunofixation, [id number] 00:20:00InterpretationComment: Normal pattern. No monoclonal proteins detected. [facility] IIPe rforming Organization Information: Site ID: [id number] Name: [facility] Address: [address] [place] [id number] Director: Dr. Jagjit MahoneyThe [facility]
[2022-09-02] MEDS ORDERED: DIAZEPAM 5 MG TABLET ONE (19:42)
[2022-09-02] MEDS ORDERED: IBUPROFEN 400 MG TAB ONE (19:42)
[2022-09-02] MEDS ORDERED: IBUPROFEN 200 MG TAB PO ONE (19:42)
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
[2022-09-03 04:20] VITALS: BP 147/97; TEMP 98.1; O2SAT 99
== END 2022-09-02 21:53 | disposition home or self-care (01) ==
LOC: ER 18:46
DX: R51.9 Headache, unspecified (principal); M54.2 Cervicalgia; M62.838 Other muscle spasm; M79.7 Fibromyalgia; K92.2 Gastrointestinal hemorrhage, unspecified; Z88.8 Allergy status to other drugs, medicaments and biological substances; V43.53XA Car driver injured in collision with pick-up truck in traffic accident, initial encounter
CPT/HCPCS: 70450; 72125